=== PATIENT | female | born 1980 | race Caucasian/White ===

== ENCOUNTER 2017-01-01 16:44 | Inpatient (IN) | payer MEDICAID, OTHER ==
[2017-01-01] MEDS ORDERED: Sodium Chloride 0.9% 1,000 ML IV ONE (19:01)
[2017-01-01] MEDS ORDERED: Sodium Chloride 0.9% 1,000 ML ONE (19:29)
[2017-01-01 19:32] LABS: BASO % 0.3 % (0.0-2.0); EOS # 0.1 K/uL (0.0-0.7); EOS % 0.5 % (0.0-4.0); HEMATOCRIT 38.5 % (34.0-47.0); LYMPH # 2.1 K/uL (1.0-4.3); LYMPH % 18.6 % (20.0-40.0); MEAN CELL VOLUME 79.3 fL (81.0-99.0); MEAN CORPUSCULAR HEMOGLOBIN 25.8 pg (27.0-31.0); MEAN CORPUSCULAR HGB CONC 32.5 g/dL (33.0-37.0); MEAN PLATELET VOLUME 7.8 fL (7.2-11.7); MONO # 0.5 K/uL (0.0-0.8); MONO % 4.1 % (0.0-10.0); RED CELL DISTRIBUTION WIDTH 13.5 % (11.5-14.5); WHITE BLOOD COUNT 11.5 K/uL (4.8-10.8)
[2017-01-01 19:37] LABS: RBC URINE 3 /hpf (0-3); URINE BACTERIA RARE (<OCC); URINE BILIRUBIN NEGATIVE (NEGATIVE); URINE BLOOD NEGATIVE (NEGATIVE); URINE COLOR Yellow (YELLOW); URINE GLUCOSE (UA) NORMAL (Normal); URINE KETONE NEGATIVE (NEGATIVE); URINE LEUKOCYTE ESTERASE 1+ Leu/uL (Negative); URINE PROTEIN NEGATIVE (NEGATIVE); URINE UROBILINOGEN NORMAL mg/dL (0.2-1.0); WBC URINE 42 /hpf (0-5)
[2017-01-01 19:40] LABS: CHLORIDE 99 mmol/L (98-107)
[2017-01-01 19:41] LABS: POTASSIUM 4.1 mmol/L (3.6-5.2); SODIUM 139 mmol/L (132-148)
[2017-01-01 19:43] LABS: ALB/GLOB RATIO 1.2 (1.0-2.1); ALKALINE PHOSPHATASE 81 U/L (38-126); AST/SGOT 70 U/L (14-36); BILIRUBIN,TOTAL 0.5 mg/dL (0.2-1.3); BLOOD UREA NITROGEN 11 mg/dL (7-17); CARBON DIOXIDE 24 mmol/L (22-30); GFR AFRICAN-AMERICAN > 60; TOTAL PROTEIN 7.7 g/dL (6.3-8.3)
[2017-01-01 19:44] LABS: ALT/SGPT 220 U/L (9-52); CALCIUM 8.9 mg/dl (8.6-10.4); GLUCOSE,RANDOM 102 mg/dL (65-105)
--- NOTE | 2017-01-01 20:16 | C.PDOC ---
History Of Present Illness 36 y/o female presents to ED with complaints of diffuse abdominal cramping pain for 1 week. Patient reports yesterday multiple episodes of non bloody vomiting and diarrhea, felt dizzy after vomiting which prompted visit to ed today. Patient denies fever, sob, chest pain, dysuria, recent travel or any other complaints at this time. Time Seen by Provider: 01/01/17 18:04 Chief Complaint (Nursing): Abdominal Pain History Per: Patient History/Exam Limitations: no limitations Onset/Duration Of Symptoms: Days Current Symptoms Are (Timing): Still Present Severity: Moderate Location Of Pain/Discomfort: Diffuse Radiation Of Pain To:: None Quality Of Discomfort: Cramping Past Medical History Reviewed: Historical Data, Nursing Documentation, Vital Signs Vital Signs: Last Vital Signs Temp 98.2 F 01/05/17 08:00 Pulse 76 01/05/17 08:00 Resp 20 01/05/17 08:00 BP 117/78 01/05/17 08:00 Pulse Ox 98 01/05/17 08:00 Surgical History: No Surg Hx Family History: States: No Known Family Hx - Social History Hx Alcohol Use: No Hx Substance Use: No - Immunization History Hx Tetanus Toxoid Vaccination: No Hx Influenza Vaccination: No Hx Pneumococcal Vaccination: No Review Of Systems Except As Marked, All Systems Reviewed And Found Negative. Gastrointestinal: Positive for: Vomiting, Abdominal Pain, Diarrhea Neurological: Positive for: Dizziness Physical Exam - Physical Exam Appears: Non-toxic, No Acute Distress Skin: Normal Color, Warm, Dry, No Rash Head: Atraumatic, Normacephalic Eye(s): bilateral: Normal Inspection Oral Mucosa: Moist Neck: Normal ROM, Supple Chest: Symmetrical Cardiovascular: Rhythm Regular, No Murmur Respiratory: Normal Breath Sounds, No Rales, No Rhonchi, No Wheezing Gastrointestinal/Abdominal: Soft, No Tenderness, No Guarding, No Rebound Back: No CVA Tenderness Extremity: Normal ROM, Capillary Refill (<2 seconds) Neurological/Psych: Oriented x3 ED Course And Treatment - Laboratory Results Result Diagrams: 01/05/17 07:55 01/05/17 07:55 O2 Sat by Pulse Oximetry: 100 (RA) Pulse Ox Interpretation: Normal Medical Decision Making Medical Decision Making: The Abd ultrasound shows gallstones with a dilated common bile duct. The case was discussed with Dr. Bain who agrees with plan for OBS for possible MRCP. The case was discussed Dr. Mathew who agrees to admit the patient. 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 - Scribe Statement The provider has reviewed the documentation as recorded by the Chapoibalbino Navarro All medical record entries made by the Marty were at my direction and personally dictated by me. I have reviewed the chart and agree that the record accurately reflects my personal performance of the history, physical exam, medical decision making, and the department course for this patient. I have also personally directed, reviewed, and agree with the discharge instructions and disposition.
--- NOTE | 2017-01-01 20:54 | US ---
EXAM: US Abdomen Limited, Right Upper Quadrant EXAM DATE/TIME: Exam ordered 01/01/2017 7:01 PM CLINICAL HISTORY: 36 years old, female; Pain; Abdominal pain; Epigastric; Additional info: Ruq abd pain TECHNIQUE: Real-time ultrasound of the right upper quadrant with image documentation. COMPARISON: No relevant prior studies available. FINDINGS: Liver: The liver measures 17.1 cm in craniocaudal span. The echotexture of the liver is mildly increased. There is normal blood flow direction in the main portal vein. Phasic flow is noted within the left hepatic vein. Gallbladder: Gallstones are seen in the gallbladder. The gallbladder fundus is not well-seen due to bowel gas. Common bile duct: The common bile duct measures 8 mm. No stones. No dilation. Pancreas: Unremarkable as visualized. Right kidney: The right kidney measures 10.7 x 4.3 x 3.9 cm. No stones. No hydronephrosis. Aorta: The distal abdominal aorta is not seen due to bowel gas. IMPRESSION: 1. Gallstones 2. Common bile duct is mildly dilated at 8 mm. No intrahepatic ductal dilatation is seen. Possibility of distal biliary stricture, stone or neoplasm are among the diagnostic considerations. 3. Mild hepatomegaly. The echotexture the liver is mildly increased. These findings could indicate hepatic steatosis..
[2017-01-02 01:50] LABS: INR 1.1
--- NOTE | 2017-01-02 07:52 | CP.PCM.PN ---
<Yann Miranda - Last Filed: 01/02/17 17:21> Subjective - Date & Time of Evaluation Date of Evaluation: 01/02/17 Time of Evaluation: 07:51 - Subjective Subjective: PGY1 Medicine Note for Dr. Vi Goodman Patient seen and examined at bedside this morning. Patient states that she has not had any abdominal pain since she arrived to the hospital. She is feeling well at the moment. She is currently NPO and is scheduled for an MRCP with Dr. Bo later this morning. Denies f/c, n/v, d/c, sob, cp, headache, numbness or tingling. Objective - Vital Signs/Intake and Output Vital Signs (last 24 hours): Temp Pulse Resp BP Pulse Ox 98.8 F 79 20 121/73 99 01/02/17 07:30 01/02/17 07:30 01/02/17 07:30 01/02/17 07:30 01/02/17 07:30 - Medications Medications: Current Medications Famotidine (Pepcid) 20 mg PO DAILY ANA Heparin Sodium (Porcine) (Heparin) 5,000 units SC Q12 ANA Influenza Virus Vaccine (Afluria) 45 mcg IM .ONCE ONE Stop: 01/04/17 10:01 Ondansetron HCl (Zofran Inj) 4 mg IVP DAILY@ONCE PRN PRN Reason: Nausea/Vomiting Pneumococcal Polyvalent Vaccine (Pneumovax 23 Vaccine) 0.5 ml IM .ONCE ONE Stop: 01/04/17 10:01 - Labs Labs: 01/01/17 19:27 01/01/17 19:27 PT 11.9 SECONDS (9.7-12.2) 01/02/17 01:25 INR 1.1 01/02/17 01:25 APTT 39 SECONDS (21-34) H 01/02/17 01:25 - Constitutional Appears: Non-toxic, No Acute Distress - Head Exam Head Exam: ATRAUMATIC, NORMOCEPHALIC - Eye Exam Eye Exam: EOMI, Normal appearance - ENT Exam ENT Exam: Mucous Membranes Moist - Respiratory Exam Respiratory Exam: Clear to Ausculation Bilateral, NORMAL BREATHING PATTERN. absent: Accessory Muscle Use, Rales, Rhonchi, Wheezes, Respiratory Distress - Cardiovascular Exam Cardiovascular Exam: REGULAR RHYTHM, +S1, +S2 - GI/Abdominal Exam GI & Abdominal Exam: Guarding (RUQ), Soft, Tenderness (mild tenderness in the RUQ), Normal Bowel Sounds. absent: Distended, Firm, Rigid - Neurological Exam Neurological Exam: Alert, Awake, Oriented x3 - Psychiatric Exam Psychiatric exam: Normal Affect, Normal Mood - Skin Skin Exam: Dry, Intact, Normal Color, Warm Assessment and Plan - Assessment and Plan (Free Text) Assessment: (1) Cholelithiases Abd U/S: gallstones, CBD mildly dilated at 8mm, mild hepatomegaly GI consulted, Dr Bo GI consulted, Dr. Quinones - ERCP MRCP abdomen w and w/o contrast - shows 3mm stone in distal CBD. Scheduled for EGD/EUS/ERCP tomorrow with Dr. Quinones NPO - at midnight zofran 4mg ivp q6h prn for n/v (2) Prophylactic measure DVT: heparin 5000u sc q12 held - - pt placed on SCDs for DVT ppx at this time GI: famotidine 20mg po daily Diet: NPO past midnight Case discussed with Dr. Vi Miranda PGY1 <Jacob Goodman - Last Filed: 01/02/17 19:32> Objective - Vital Signs/Intake and Output Vital Signs (last 24 hours): Temp Pulse Resp BP Pulse Ox 98.5 F 64 20 121/80 98 01/02/17 15:00 01/02/17 15:00 01/02/17 15:00 01/02/17 15:00 01/02/17 15:00 - Medications Medications: Current Medications Famotidine (Pepcid) 20 mg PO DAILY [facility] Last Admin: 01/02/17 10:29 Dose: Not Given Heparin Sodium (Porcine) (Heparin) 5,000 units SC Q12 ANA Last Admin: 01/02/17 10:33 Dose: 5,000 units Influenza Virus Vaccine (Afluria) 45 mcg IM .ONCE ONE Stop: 01/04/17 10:01 Ondansetron HCl (Zofran Inj) 4 mg IVP Q6H PRN PRN Reason: Nausea/Vomiting Pneumococcal Polyvalent Vaccine (Pneumovax 23 Vaccine) 0.5 ml IM .ONCE ONE Stop: 01/04/17 10:01 - Labs Labs: 01/02/17 11:28 01/02/17 11:28 PT 11.9 SECONDS (9.7-12.2) 01/02/17 01:25 INR 1.1 01/02/17 01:25 APTT 39 SECONDS (21-34) H 01/02/17 01:25 Attending/Attestation - Attestation I have personally seen and examined this patient.: Yes I have fully participated in the care of the patient.: Yes I have reviewed all pertinent clinical information, including history, physical exam and plan: Yes Notes (Text): 01/02/17 19:30 Patient was seen and examined at 11:45 AM 01/02/17. Exam, Assessment and Plan were thoroughly gone over with the resident. Jacob Goodman D.O.
--- NOTE | 2017-01-02 09:18 | CP.PCM.HP ---
<Allen Haynes - Last Filed: 01/02/17 09:11> History of Present Illness - History of Present Illness History of Present Illness: 36 yo F with no PMHx presented to the ED with intermittent epigastric abdominal pain that began 2 weeks ago. She says the pain radiates from the epigastrum to different quadrants of the abdomen. She describes the pain as sharp and stabbing and rates it a 10/10. She says zantac relieves her symptoms but only for an hour. No exacerbating factors. Associated symptoms include non-bloody emesis on several occasions, fever, chills, headache, dizziness, nausea, non- bloody diarrhea. She went to work today, had an episode of emesis, along with her abdominal pain and decided to come to the ED. 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 absent: Fatigue, Weight Loss - EENT Eyes: absent: Change in Vision Ears: absent: Ear Pain Nose/Mouth/Throat: absent: Nasal Congestion - Cardiovascular Cardiovascular: absent: Chest Pain, Diaphoresis, Palpitations - Respiratory Respiratory: absent: Cough, Dyspnea, Hemoptysis - Gastrointestinal Gastrointestinal: Abdominal Pain, Diarrhea. absent: Bloating, Constipation - Genitourinary Genitourinary: absent: Dysuria - Musculoskeletal Musculoskeletal: absent: Back Pain - Integumentary Integumentary: absent: Lesions - Neurological Neurological: Dizziness. absent: Confusion, Convulsions Past Patient History - Past Medical History & Family History Past Medical History?: Yes - Past Social History Smoking Status: Never Smoked - CARDIAC Hx Cardiac Disorders: No - PULMONARY Hx Respiratory Disorders: No - NEUROLOGICAL Hx Neurological Disorder: No - HEENT Hx HEENT Problems: No - RENAL Hx Chronic Kidney Disease: No - ENDOCRINE/METABOLIC Hx Endocrine Disorders: No - HEMATOLOGICAL/ONCOLOGICAL Hx Blood Disorders: No - INTEGUMENTARY Hx Dermatological Problems: No - MUSCULOSKELETAL/RHEUMATOLOGICAL Hx Falls: No - GASTROINTESTINAL Hx Gastrointestinal Disorders: No - GENITOURINARY/GYNECOLOGICAL Hx Genitourinary Disorders: No - PSYCHIATRIC Hx Substance Use: No - SURGICAL HISTORY Hx Surgeries: No - ANESTHESIA Hx Anesthesia: No Hx Anesthesia Reactions: No Hx Malignant Hyperthermia: No Has any member of the family had a problem w/ anesthesia?: No Meds Allergies/Adverse Reactions: Allergies Allergy/AdvReac Type Severity Reaction Status Date / Time No Known Allergies Allergy Verified 01/01/17 17:02 Physical Exam - Constitutional Appears: Well, Non-toxic, No Acute Distress - Head Exam Head Exam: ATRAUMATIC, NORMAL INSPECTION - Eye Exam Eye Exam: EOMI Pupil Exam: PERRL - ENT Exam ENT Exam: Mucous Membranes Moist - Neck Exam Neck exam: Positive for: Normal Inspection - Respiratory Exam Respiratory Exam: Clear to Auscultation Bilateral, NORMAL BREATHING PATTERN. absent: Rales, Rhonchi, Wheezes - Cardiovascular Exam Cardiovascular Exam: REGULAR RHYTHM, RRR, +S1, +S2. absent: Systolic Murmur - GI/Abdominal Exam GI & Abdominal Exam: Normal Bowel Sounds, Soft, Tenderness. absent: Distended, Guarding, Rebound - Rectal Exam Rectal Exam: Deferred - Extremities Exam Extremities exam: Positive for: normal capillary refill, normal inspection. Negative for: pedal edema - Back Exam Back exam: NORMAL INSPECTION. absent: CVA tenderness (L), CVA tenderness (R) - Neurological Exam Neurological exam: Alert, CN II-XII Intact, Oriented x3 - Psychiatric Exam Psychiatric exam: Normal Affect, Normal Mood - Skin Skin Exam: Dry, Intact, Normal Color, Warm Results - Vital Signs Recent Vital Signs: Last Vital Signs Temp 98.8 F 01/02/17 07:30 Pulse 79 01/02/17 07:30 Resp 20 01/02/17 07:30 BP 121/73 01/02/17 07:30 Pulse Ox 99 01/02/17 07:30 - Labs Result Diagrams: 01/01/17 19:27 01/01/17 19:27 Labs: Laboratory Results - last 24 hr 01/01/17 01/01/17 01/01/17 19:27 19:27 19:27 WBC 11.5 H RBC 4.85 Hgb 12.5 Hct 38.5 MCV 79.3 L MCH 25.8 L MCHC 32.5 L RDW 13.5 Plt Count 337 MPV 7.8 Neut % (Auto) 76.5 H Lymph % (Auto) 18.6 L [place] % (Auto) 4.1 Eos % (Auto) 0.5 Baso % (Auto) 0.3 Neut # 8.8 H Lymph # 2.1 [place] # 0.5 Eos # 0.1 Baso # 0.0 PT INR APTT Sodium 139 Potassium 4.1 Chloride 99 Carbon Dioxide 24 Anion Gap 21 H BUN 11 Creatinine 0.7 Est GFR ( Amer) > 60 Est GFR (Non-Af Amer) > 60 Random Glucose 102 Calcium 8.9 Total Bilirubin 0.5 AST 70 H ALT 220 H Alkaline Phosphatase 81 Total Protein 7.7 Albumin 4.3 Globulin 3.5 Albumin/Globulin Ratio 1.2 Lipase 92 Urine Color Yellow Urine Clarity Clear Urine pH 5.0 Ur Specific [place] 1.028 Urine Protein Negative Urine Glucose (UA) Normal Urine Ketones Negative Urine Blood Negative Urine Nitrate Negative Urine Bilirubin Negative Urine Urobilinogen Normal Ur Leukocyte Esterase 1+ H Urine WBC (Auto) 42 H Urine RBC (Auto) 3 Ur Squamous Epith Cells 15 H Urine Bacteria Rare Urine HCG, Qual Negative 01/02/17 01:25 WBC RBC Hgb Hct MCV MCH MCHC RDW Plt Count MPV Neut % (Auto) Lymph % (Auto) [place] % (Auto) Eos % (Auto) Baso % (Auto) Neut # Lymph # [place] # Eos # Baso # PT 11.9 INR 1.1 APTT 39 H Sodium Potassium Chloride Carbon Dioxide Anion Gap BUN Creatinine Est GFR ( Amer) Est GFR (Non-Af Amer) Random Glucose Calcium Total Bilirubin AST ALT Alkaline Phosphatase Total Protein Albumin Globulin Albumin/Globulin Ratio Lipase Urine Color Urine Clarity Urine pH Ur Specific [place] Urine Protein Urine Glucose (UA) Urine Ketones Urine Blood Urine Nitrate Urine Bilirubin Urine Urobilinogen Ur Leukocyte Esterase Urine WBC (Auto) Urine RBC (Auto) Ur Squamous Epith Cells Urine Bacteria Urine HCG, Qual Assessment & Plan (1) Cholelithiases Assessment and Plan: clinical symptoms consistent with cholelithiases Abd U/S: gallstones, CBD mildly dilated at 8mm, mild hepatomegaly GI consulted, Dr Bo MRI MRCP abdomen w and w/o contrast NPO for now zofran 4mg ivp q6h prn for n/v Status: Acute (2) Prophylactic measure Assessment and Plan: DVT: heparin 5000u sc q12 GI: famotidine 20mg po daily Diet: NPO for now Status: Acute <Kj Mathew - Last Filed: 01/02/17 19:07> Results - Vital Signs Recent Vital Signs: Last Vital Signs Temp 98.5 F 01/02/17 15:00 Pulse 64 01/02/17 15:00 Resp 20 01/02/17 15:00 BP 121/80 01/02/17 15:00 Pulse Ox 98 01/02/17 15:00 - Labs Result Diagrams: 01/02/17 11:28 01/02/17 11:28 Labs: Laboratory Results - last 24 hr 01/01/17 01/01/17 01/01/17 19:27 19:27 19:27 WBC 11.5 H RBC 4.85 Hgb 12.5 Hct 38.5 MCV 79.3 L MCH 25.8 L MCHC 32.5 L RDW 13.5 Plt Count 337 MPV 7.8 Neut % (Auto) 76.5 H Lymph % (Auto) 18.6 L [place] % (Auto) 4.1 Eos % (Auto) 0.5 Baso % (Auto) 0.3 Neut # 8.8 H Lymph # 2.1 [place] # 0.5 Eos # 0.1 Baso # 0.0 PT INR APTT Sodium 139 Potassium 4.1 Chloride 99 Carbon Dioxide 24 Anion Gap 21 H BUN 11 Creatinine 0.7 Est GFR ( Amer) > 60 Est GFR (Non-Af Amer) > 60 Random Glucose 102 Calcium 8.9 Total Bilirubin 0.5 AST 70 H ALT 220 H Alkaline Phosphatase 81 Total Protein 7.7 Albumin 4.3 Globulin 3.5 Albumin/Globulin Ratio 1.2 Lipase 92 Urine Color Yellow Urine Clarity Clear Urine pH 5.0 Ur Specific [place] 1.028 Urine Protein Negative Urine Glucose (UA) Normal Urine Ketones Negative Urine Blood Negative Urine Nitrate Negative Urine Bilirubin Negative Urine Urobilinogen Normal Ur Leukocyte Esterase 1+ H Urine WBC (Auto) 42 H Urine RBC (Auto) 3 Ur Squamous Epith Cells 15 H Urine Bacteria Rare Urine HCG, Qual Negative 01/02/17 01/02/17 01/02/17 01:25 11:28 11:28 WBC 7.7 RBC 4.65 Hgb 12.5 Hct 37.3 MCV 80.2 L MCH 26.8 L MCHC 33.4 RDW 13.4 Plt Count 338 MPV 8.0 Neut % (Auto) 60.5 Lymph % (Auto) 30.7 [place] % (Auto) 7.2 Eos % (Auto) 1.2 Baso % (Auto) 0.4 Neut # 4.7 Lymph # 2.4 [place] # 0.6 Eos # 0.1 Baso # 0.0 PT 11.9 INR 1.1 APTT 39 H Sodium 139 Potassium 3.8 Chloride 98 Carbon Dioxide 26 Anion Gap 19 BUN 10 Creatinine 0.8 Est GFR ( Amer) > 60 Est GFR (Non-Af Amer) > 60 Random Glucose 102 Calcium 9.0 Total Bilirubin 0.8 AST 44 H D ALT 172 H D Alkaline Phosphatase 74 Total Protein 7.5 Albumin 4.2 Globulin 3.4 Albumin/Globulin Ratio 1.2 Lipase Urine Color Urine Clarity Urine pH Ur Specific [place] Urine Protein Urine Glucose (UA) Urine Ketones Urine Blood Urine Nitrate Urine Bilirubin Urine Urobilinogen Ur Leukocyte Esterase Urine WBC (Auto) Urine RBC (Auto) Ur Squamous Epith Cells Urine Bacteria Urine HCG, Qual Assessment & Plan - Date & Time Date: 01/02/17 (I have seen and examined the patient. I agree with the findings and plan of care as documented by Dr. Haynes. Patient with choledocolithiasis. Consult to GI. Symptomatic treatment for now. Likely MRCP needed. Monitor for acute changes.) Time: 19:06 Attending/Attestation - Attestation I have personally seen and examined this patient.: Yes I have fully participated in the care of the patient.: Yes I have reviewed all pertinent clinical information: Yes
[2017-01-02 11:43] LABS: BASO % 0.4 % (0.0-2.0); EOS # 0.1 K/uL (0.0-0.7); EOS % 1.2 % (0.0-4.0); HEMATOCRIT 37.3 % (34.0-47.0); LYMPH # 2.4 K/uL (1.0-4.3); LYMPH % 30.7 % (20.0-40.0); MEAN CELL VOLUME 80.2 fL (81.0-99.0); MEAN CORPUSCULAR HEMOGLOBIN 26.8 pg (27.0-31.0); MEAN CORPUSCULAR HGB CONC 33.4 g/dL (33.0-37.0); MONO # 0.6 K/uL (0.0-0.8); MONO % 7.2 % (0.0-10.0); NRBC % 0.1 % (0.0-2.0); RED CELL DISTRIBUTION WIDTH 13.4 % (11.5-14.5); WHITE BLOOD COUNT 7.7 K/uL (4.8-10.8)
[2017-01-02 12:08] LABS: CHLORIDE 98 mmol/L (98-107); POTASSIUM 3.8 mmol/L (3.6-5.2); SODIUM 139 mmol/L (132-148)
--- NOTE | 2017-01-02 12:08 | MRI ---
MRI abdomen without/with IV contrast MRCP Indication: Gallstones, CBD dilated 8 mm Technique: Multiplanar, multi sequence magnetic resonance images of the abdomen were obtained without and with the administration of intravenous gadolinium using a multi phase abdomen protocol. Rotating maximum intensity projection images of the biliary system were generated. A total of [id number] images submitted for review Comparison: Limited abdominal ultrasound performed 01/01/17 Findings: The liver appears unremarkable. No focal liver lesions are seen. Cholelithiasis. There is no intrahepatic biliary ductal dilatation. The common bile duct appears within normal limits in caliber (approximately 6 mm) ; distal most CBD is not well visualized. 3 mm filling defect within the distal CBD consistent with calculus (series 10, image 12). The pancreatic duct does not appear dilated. The spleen, pancreas, and adrenal glands appear unremarkable. The kidneys enhance symmetrically. No evidence of hydronephrosis or obstructing calculus. No bulky adenopathy identified. Limited views of the inferior thorax appear unremarkable. Impression: Cholelithiasis. The common bile duct appears top normal in caliber measuring approximately 6 mm ; distal-most CBD is not well visualized. A single 3 mm filling defect is identified on 1 sequence and appears consistent with a calculus. Correlate clinically.
[2017-01-02 12:10] LABS: BILIRUBIN,TOTAL 0.8 mg/dL (0.2-1.3); CARBON DIOXIDE 26 mmol/L (22-30); GFR AFRICAN-AMERICAN > 60
[2017-01-02 12:11] LABS: ALB/GLOB RATIO 1.2 (1.0-2.1); ALKALINE PHOSPHATASE 74 U/L (38-126); ALT/SGPT 172 U/L (9-52); AST/SGOT 44 U/L (14-36); BLOOD UREA NITROGEN 10 mg/dL (7-17); GLUCOSE,RANDOM 102 mg/dL (65-105); TOTAL PROTEIN 7.5 g/dL (6.3-8.3)
--- NOTE | 2017-01-02 13:50 | CP.PCM.CON ---
History of Present Illness - History of Present Illness History of Present Illness: This is a 36 year old woman with abdominal pain. Patient states that she noted sudden onset of epigastric pain two weeks ago. The pain was described as sharp, intermittent, lasting up to three hours, accompanied by nausea and vomiting. It was not clearly related to meals. She denies having fever. She had diarrhea three times on the day she came to the ER. She denies having rectal bleeding or constipation. In the ER, elevated LFTs were noted: AST 70, ALT 220. Sonogram showed gallstones and CBD 8 mm. MRCP shows 3 mm distal CBD stone and the CBD measured 6 mm. Review of Systems - Constitutional Constitutional: Chills, Headache. absent: Weight Loss - Cardiovascular Cardiovascular: absent: Chest Pain, Palpitations - Respiratory Respiratory: absent: Cough, Dyspnea, Hemoptysis - Gastrointestinal Gastrointestinal: Abdominal Pain, Diarrhea. absent: Constipation, Hematochezia - Genitourinary Genitourinary: absent: Dysuria Past Patient History - Past Medical History & Family History Past Medical History?: Yes - Past Social History Smoking Status: Never Smoked - CARDIAC Hx Cardiac Disorders: No - PULMONARY Hx Respiratory Disorders: No - NEUROLOGICAL Hx Neurological Disorder: No - HEENT Hx HEENT Problems: No - RENAL Hx Chronic Kidney Disease: No - ENDOCRINE/METABOLIC Hx Endocrine Disorders: No - HEMATOLOGICAL/ONCOLOGICAL Hx Blood Disorders: No - INTEGUMENTARY Hx Dermatological Problems: No - MUSCULOSKELETAL/RHEUMATOLOGICAL Hx Falls: No - GASTROINTESTINAL Hx Gastrointestinal Disorders: No - GENITOURINARY/GYNECOLOGICAL Hx Genitourinary Disorders: No - PSYCHIATRIC Hx Substance Use: No - SURGICAL HISTORY Hx Surgeries: No - ANESTHESIA Hx Anesthesia: No Hx Anesthesia Reactions: No Hx Malignant Hyperthermia: No Has any member of the family had a problem w/ anesthesia?: No Meds Allergies/Adverse Reactions: Allergies Allergy/AdvReac Type Severity Reaction Status Date / Time No Known Allergies Allergy Verified 01/01/17 17:02 - Medications Medications: Current Medications Famotidine (Pepcid) 20 mg PO DAILY [facility] Last Admin: 01/02/17 10:29 Dose: Not Given Heparin Sodium (Porcine) (Heparin) 5,000 units SC Q12 [facility] Last Admin: 01/02/17 10:33 Dose: 5,000 units Influenza Virus Vaccine (Afluria) 45 mcg IM .ONCE ONE Stop: 01/04/17 10:01 Ondansetron HCl (Zofran Inj) 4 mg IVP Q6H PRN PRN Reason: Nausea/Vomiting Pneumococcal Polyvalent Vaccine (Pneumovax 23 Vaccine) 0.5 ml IM .ONCE ONE Stop: 01/04/17 10:01 Physical Exam - Constitutional Appears: No Acute Distress - Head Exam Head Exam: ATRAUMATIC, NORMOCEPHALIC - Eye Exam Eye Exam: EOMI, PERRL - Neck Exam Neck exam: Negative for: Lymphadenopathy, Thyromegaly - Respiratory Exam Respiratory Exam: NORMAL BREATHING PATTERN. absent: Rales, Rhonchi, Wheezes - Cardiovascular Exam Cardiovascular Exam: REGULAR RHYTHM, +S1, +S2. absent: Gallop, Rubs, Systolic Murmur - GI/Abdominal Exam GI & Abdominal Exam: Normal Bowel Sounds, Soft. absent: Mass, Organomegaly, Tenderness - Rectal Exam Rectal Exam: Deferred - Extremities Exam Extremities exam: Negative for: calf tenderness, pedal edema Results - Vital Signs Recent Vital Signs: Last Vital Signs Temp 98.8 F 01/02/17 07:30 Pulse 79 01/02/17 07:30 Resp 20 01/02/17 07:30 BP 121/73 01/02/17 07:30 Pulse Ox 99 01/02/17 07:30 - Labs Result Diagrams: 01/02/17 11:28 01/02/17 11:28 Labs: Laboratory Results - last 24 hr 01/01/17 01/01/17 01/01/17 19:27 19:27 19:27 WBC 11.5 H RBC 4.85 Hgb 12.5 Hct 38.5 MCV 79.3 L MCH 25.8 L MCHC 32.5 L RDW 13.5 Plt Count 337 MPV 7.8 Neut % (Auto) 76.5 H Lymph % (Auto) 18.6 L [place] % (Auto) 4.1 Eos % (Auto) 0.5 Baso % (Auto) 0.3 Neut # 8.8 H Lymph # 2.1 Rogers # 0.5 Eos # 0.1 Baso # 0.0 PT INR APTT Sodium 139 Potassium 4.1 Chloride 99 Carbon Dioxide 24 Anion Gap 21 H BUN 11 Creatinine 0.7 Est GFR ( Amer) > 60 Est GFR (Non-Af Amer) > 60 Random Glucose 102 Calcium 8.9 Total Bilirubin 0.5 AST 70 H ALT 220 H Alkaline Phosphatase 81 Total Protein 7.7 Albumin 4.3 Globulin 3.5 Albumin/Globulin Ratio 1.2 Lipase 92 Urine Color Yellow Urine Clarity Clear Urine pH 5.0 Ur Specific [place] 1.028 Urine Protein Negative Urine Glucose (UA) Normal Urine Ketones Negative Urine Blood Negative Urine Nitrate Negative Urine Bilirubin Negative Urine Urobilinogen Normal Ur Leukocyte Esterase 1+ H Urine WBC (Auto) 42 H Urine RBC (Auto) 3 Ur Squamous Epith Cells 15 H Urine Bacteria Rare Urine HCG, Qual Negative 01/02/17 01/02/17 01/02/17 01:25 11:28 11:28 WBC 7.7 RBC 4.65 Hgb 12.5 Hct 37.3 MCV 80.2 L MCH 26.8 L MCHC 33.4 RDW 13.4 Plt Count 338 MPV 8.0 Neut % (Auto) 60.5 Lymph % (Auto) 30.7 Rogers % (Auto) 7.2 Eos % (Auto) 1.2 Baso % (Auto) 0.4 Neut # 4.7 Lymph # 2.4 Rogers # 0.6 Eos # 0.1 Baso # 0.0 PT 11.9 INR 1.1 APTT 39 H Sodium 139 Potassium 3.8 Chloride 98 Carbon Dioxide 26 Anion Gap 19 BUN 10 Creatinine 0.8 Est GFR ( Amer) > 60 Est GFR (Non-Af Amer) > 60 Random Glucose 102 Calcium 9.0 Total Bilirubin 0.8 AST 44 H D ALT 172 H D Alkaline Phosphatase 74 Total Protein 7.5 Albumin 4.2 Globulin 3.4 Albumin/Globulin Ratio 1.2 Lipase Urine Color Urine Clarity Urine pH Ur Specific [place] Urine Protein Urine Glucose (UA) Urine Ketones Urine Blood Urine Nitrate Urine Bilirubin Urine Urobilinogen Ur Leukocyte Esterase Urine WBC (Auto) Urine RBC (Auto) Ur Squamous Epith Cells Urine Bacteria Urine HCG, Qual Assessment & Plan (1) Epigastric abdominal pain Assessment and Plan: Patient presents with a two week history of epigastric pain, elevated transaminases, mildly dilated CBD and distal CBD stone on MRCP. Patient should have ERCP to clear the bile duct and cholecystectomy on this admission. Status: Acute
--- NOTE | 2017-01-02 14:25 | CP.PCM.CON ---
<Jose Mancia - Last Filed: 01/02/17 18:01> History of Present Illness - History of Present Illness History of Present Illness: PGY5 GI Fellow Consult Note Patient is a 36yo female with no significant past medical history who presented to the ED with abdominal pain. She suddenly developed intermittent epigastric abdominal pain two weeks ago while getting her children ready for school. Pain has continued to come and go without any obvious preceding causes and has not been related to meals. In the interim, she has used Zantac as needed with modest , short-lived relief. Occasionally she has developed pain followed by nausea and vomiting. Yesterday, she became nauseated and vomited twice, became dizzy and lightheaded and felt she might faint which prompted her to come to the ED for further evaluation. She denies any fever, chills, weight loss, OTC medication/NSAID use, melena, hematochezia. Denies ever having had symptoms like this prior to two weeks ago. PMHx: Discussed with patient and she denies any prior medical history PSHx: Discussed with patient and she denies any prior surgical history FHx: Discussed with patient and she denies any pertinent family history Social: Denies tobacco, EtOH or illicit drug use Endo: No prior endoscopic evaluations Review of Systems - Constitutional Constitutional: Anorexia. absent: Chills, Fever, Weight Loss - EENT Eyes: absent: Change in Vision Nose/Mouth/Throat: absent: Sore Throat - Cardiovascular Cardiovascular: absent: Chest Pain, Dyspnea, Dyspnea on Exertion - Respiratory Respiratory: absent: Cough, Dyspnea, Excessive Mucous Production - Gastrointestinal Gastrointestinal: Abdominal Pain, Cramping, Nausea, Vomiting. absent: Belching , Bloating, Constipation, Diarrhea, Dyspepsia, Dysphagia, Hematemesis, Hematochezia, Loose Stools, Odynophagia - Genitourinary Genitourinary: absent: Dysuria, Urinary Frequency, Urinary Urgency - Musculoskeletal Musculoskeletal: absent: Back Pain, Neck Pain - Integumentary Integumentary: absent: New Lesions, Rash - Neurological Neurological: absent: Dizziness, Numbness, Focal Weakness - Psychiatric Psychiatric: absent: Anxiety, Depression - Endocrine Endocrine: absent: Polydipsia, Polyphagia, Polyuria - Hematologic/Lymphatic Hematologic: absent: Easy Bleeding, Easy Bruising, Lymphadenopathy Past Patient History - Past Medical History & Family History Past Medical History?: Yes - Past Social History Smoking Status: Never Smoked - CARDIAC Hx Cardiac Disorders: No - PULMONARY Hx Respiratory Disorders: No - NEUROLOGICAL Hx Neurological Disorder: No - HEENT Hx HEENT Problems: No - RENAL Hx Chronic Kidney Disease: No - ENDOCRINE/METABOLIC Hx Endocrine Disorders: No - HEMATOLOGICAL/ONCOLOGICAL Hx Blood Disorders: No - INTEGUMENTARY Hx Dermatological Problems: No - MUSCULOSKELETAL/RHEUMATOLOGICAL Hx Falls: No - GASTROINTESTINAL Hx Gastrointestinal Disorders: No - GENITOURINARY/GYNECOLOGICAL Hx Genitourinary Disorders: No - PSYCHIATRIC Hx Substance Use: No - SURGICAL HISTORY Hx Surgeries: No - ANESTHESIA Hx Anesthesia: No Hx Anesthesia Reactions: No Hx Malignant Hyperthermia: No Has any member of the family had a problem w/ anesthesia?: No Meds Allergies/Adverse Reactions: Allergies Allergy/AdvReac Type Severity Reaction Status Date / Time No Known Allergies Allergy Verified 01/01/17 17:02 - Medications Medications: Current Medications Famotidine (Pepcid) 20 mg PO DAILY [facility] Last Admin: 01/02/17 10:29 Dose: Not Given Heparin Sodium (Porcine) (Heparin) 5,000 units SC Q12 [facility] Last Admin: 01/02/17 10:33 Dose: 5,000 units Influenza Virus Vaccine (Afluria) 45 mcg IM .ONCE ONE Stop: 01/04/17 10:01 Ondansetron HCl (Zofran Inj) 4 mg IVP Q6H PRN PRN Reason: Nausea/Vomiting Pneumococcal Polyvalent Vaccine (Pneumovax 23 Vaccine) 0.5 ml IM .ONCE ONE Stop: 01/04/17 10:01 Physical Exam - Constitutional Appears: Non-toxic, No Acute Distress - Eye Exam Eye Exam: EOMI, PERRL - ENT Exam ENT Exam: Mucous Membranes Moist - Respiratory Exam Respiratory Exam: Clear to Auscultation Bilateral. absent: Rales, Rhonchi, Wheezes - Cardiovascular Exam Cardiovascular Exam: RRR, +S1, +S2 - GI/Abdominal Exam GI & Abdominal Exam: Normal Bowel Sounds, Soft. absent: Distended, Firm, Guarding, Organomegaly, Rigid, Tenderness - Extremities Exam Extremities exam: Positive for: normal inspection. Negative for: pedal edema - Neurological Exam Neurological exam: Alert, Oriented x3 - Psychiatric Exam Psychiatric exam: Normal Affect, Normal Mood - Skin Skin Exam: Dry, Warm Results - Vital Signs Recent Vital Signs: Last Vital Signs Temp 98.8 F 01/02/17 07:30 Pulse 79 01/02/17 07:30 Resp 20 01/02/17 07:30 BP 121/73 01/02/17 07:30 Pulse Ox 99 01/02/17 07:30 - Labs Result Diagrams: 01/02/17 11:28 01/02/17 11:28 Labs: Laboratory Results - last 24 hr 01/01/17 01/01/17 01/01/17 19:27 19:27 19:27 WBC 11.5 H RBC 4.85 Hgb 12.5 Hct 38.5 MCV 79.3 L MCH 25.8 L MCHC 32.5 L RDW 13.5 Plt Count 337 MPV 7.8 Neut % (Auto) 76.5 H Lymph % (Auto) 18.6 L [place] % (Auto) 4.1 Eos % (Auto) 0.5 Baso % (Auto) 0.3 Neut # 8.8 H Lymph # 2.1 Ferry # 0.5 Eos # 0.1 Baso # 0.0 PT INR APTT Sodium 139 Potassium 4.1 Chloride 99 Carbon Dioxide 24 Anion Gap 21 H BUN 11 Creatinine 0.7 Est GFR ( Amer) > 60 Est GFR (Non-Af Amer) > 60 Random Glucose 102 Calcium 8.9 Total Bilirubin 0.5 AST 70 H ALT 220 H Alkaline Phosphatase 81 Total Protein 7.7 Albumin 4.3 Globulin 3.5 Albumin/Globulin Ratio 1.2 Lipase 92 Urine Color Yellow Urine Clarity Clear Urine pH 5.0 Ur Specific [place] 1.028 Urine Protein Negative Urine Glucose (UA) Normal Urine Ketones Negative Urine Blood Negative Urine Nitrate Negative Urine Bilirubin Negative Urine Urobilinogen Normal Ur Leukocyte Esterase 1+ H Urine WBC (Auto) 42 H Urine RBC (Auto) 3 Ur Squamous Epith Cells 15 H Urine Bacteria Rare Urine HCG, Qual Negative 01/02/17 01/02/17 01/02/17 01:25 11:28 11:28 WBC 7.7 RBC 4.65 Hgb 12.5 Hct 37.3 MCV 80.2 L MCH 26.8 L MCHC 33.4 RDW 13.4 Plt Count 338 MPV 8.0 Neut % (Auto) 60.5 Lymph % (Auto) 30.7 [place] % (Auto) 7.2 Eos % (Auto) 1.2 Baso % (Auto) 0.4 Neut # 4.7 Lymph # 2.4 [place]erry # 0.6 Eos # 0.1 Baso # 0.0 PT 11.9 INR 1.1 APTT 39 H Sodium 139 Potassium 3.8 Chloride 98 Carbon Dioxide 26 Anion Gap 19 BUN 10 Creatinine 0.8 Est GFR ( Amer) > 60 Est GFR (Non-Af Amer) > 60 Random Glucose 102 Calcium 9.0 Total Bilirubin 0.8 AST 44 H D ALT 172 H D Alkaline Phosphatase 74 Total Protein 7.5 Albumin 4.2 Globulin 3.4 Albumin/Globulin Ratio 1.2 Lipase Urine Color Urine Clarity Urine pH Ur Specific [place] Urine Protein Urine Glucose (UA) Urine Ketones Urine Blood Urine Nitrate Urine Bilirubin Urine Urobilinogen Ur Leukocyte Esterase Urine WBC (Auto) Urine RBC (Auto) Ur Squamous Epith Cells Urine Bacteria Urine HCG, Qual Assessment & Plan - Assessment and Plan (Free Text) Assessment: Patient is a 36yo female with no significant past medical history who presented to the ED with abdominal pain. -Abdominal pain -Abnormal imaging of the CBD on MRCP, concern for choledocolithiasis vs stricture -Cholelithiasis -Transaminasemia Plan: -U/S and MRCP reviewed -Appears to have distal CBD lesion, possible choledocolithiasis -Plan for EGD/EUS/ERCP tomorrow with Dr Quinones -May benefit from surgical consultation for cholecystectomy -Hold prophylactic Heparin, can use SCDs for DVT ppx -NPO past MN -Check ZOE, AMA, SMA, LKM-Ab, IgG level tomorrow AM given transaminasemia - Date & Time Date: 01/02/17 Time: 14:30 <Bear Hayden - Last Filed: 01/02/17 18:17> Meds - Medications Medications: Current Medications Famotidine (Pepcid) 20 mg PO DAILY [facility] Last Admin: 01/02/17 10:29 Dose: Not Given Heparin Sodium (Porcine) (Heparin) 5,000 units SC Q12 [facility] Last Admin: 01/02/17 10:33 Dose: 5,000 units Influenza Virus Vaccine (Afluria) 45 mcg IM .ONCE ONE Stop: 01/04/17 10:01 Ondansetron HCl (Zofran Inj) 4 mg IVP Q6H PRN PRN Reason: Nausea/Vomiting Pneumococcal Polyvalent Vaccine (Pneumovax 23 Vaccine) 0.5 ml IM .ONCE ONE Stop: 01/04/17 10:01 Results - Vital Signs Recent Vital Signs: Last Vital Signs Temp 98.5 F 01/02/17 15:00 Pulse 64 01/02/17 15:00 Resp 20 01/02/17 15:00 BP 121/80 01/02/17 15:00 Pulse Ox 98 01/02/17 15:00 - Labs Result Diagrams: 01/02/17 11:28 01/02/17 11:28 Labs: Laboratory Results - last 24 hr 01/01/17 01/01/17 01/01/17 19:27 19:27 19:27 WBC 11.5 H RBC 4.85 Hgb 12.5 Hct 38.5 MCV 79.3 L MCH 25.8 L MCHC 32.5 L RDW 13.5 Plt Count 337 MPV 7.8 Neut % (Auto) 76.5 H Lymph % (Auto) 18.6 L [place] % (Auto) 4.1 Eos % (Auto) 0.5 Baso % (Auto) 0.3 Neut # 8.8 H Lymph # 2.1 Ferry # 0.5 Eos # 0.1 Baso # 0.0 PT INR APTT Sodium 139 Potassium 4.1 Chloride 99 Carbon Dioxide 24 Anion Gap 21 H BUN 11 Creatinine 0.7 Est GFR ( Amer) > 60 Est GFR (Non-Af Amer) > 60 Random Glucose 102 Calcium 8.9 Total Bilirubin 0.5 AST 70 H ALT 220 H Alkaline Phosphatase 81 Total Protein 7.7 Albumin 4.3 Globulin 3.5 Albumin/Globulin Ratio 1.2 Lipase 92 Urine Color Yellow Urine Clarity Clear Urine pH 5.0 Ur Specific [place] 1.028 Urine Protein Negative Urine Glucose (UA) Normal Urine Ketones Negative Urine Blood Negative Urine Nitrate Negative Urine Bilirubin Negative Urine Urobilinogen Normal Ur Leukocyte Esterase 1+ H Urine WBC (Auto) 42 H Urine RBC (Auto) 3 Ur Squamous Epith Cells 15 H Urine Bacteria Rare Urine HCG, Qual Negative 01/02/17 01/02/17 01/02/17 01:25 11:28 11:28 WBC 7.7 RBC 4.65 Hgb 12.5 Hct 37.3 MCV 80.2 L MCH 26.8 L MCHC 33.4 RDW 13.4 Plt Count 338 MPV 8.0 Neut % (Auto) 60.5 Lymph % (Auto) 30.7 [place] % (Auto) 7.2 Eos % (Auto) 1.2 Baso % (Auto) 0.4 Neut # 4.7 Lymph # 2.4 Ferry # 0.6 Eos # 0.1 Baso # 0.0 PT 11.9 INR 1.1 APTT 39 H Sodium 139 Potassium 3.8 Chloride 98 Carbon Dioxide 26 Anion Gap 19 BUN 10 Creatinine 0.8 Est GFR ( Amer) > 60 Est GFR (Non-Af Amer) > 60 Random Glucose 102 Calcium 9.0 Total Bilirubin 0.8 AST 44 H D ALT 172 H D Alkaline Phosphatase 74 Total Protein 7.5 Albumin 4.2 Globulin 3.4 Albumin/Globulin Ratio 1.2 Lipase Urine Color Urine Clarity Urine pH Ur Specific [place] Urine Protein Urine Glucose (UA) Urine Ketones Urine Blood Urine Nitrate Urine Bilirubin Urine Urobilinogen Ur Leukocyte Esterase Urine WBC (Auto) Urine RBC (Auto) Ur Squamous Epith Cells Urine Bacteria Urine HCG, Qual Attending/Attestation - Attestation I have personally seen and examined this patient.: Yes I have fully participated in the care of the patient.: Yes I have reviewed all pertinent clinical information: Yes Notes (Text): 01/02/17 18:11 I have seen and examined patient with GI fellow. Agree with above documentation with the following additions. In brief, this is a 36 year old female without significant past medical history who presents to hospital with progressive abdominal pain for the past 2 weeks. The pain does not appear to be related to food consumption, located in epigastric region and at times radiates to RUQ. Her symptoms were associated with multiple episodes of nausea , vomiting which prompted her to come to hospital. She currently appears comfortable and has not had recurrent vomiting since arrival to hospital. She denies fever/chills, weight loss, jaundice, or pruritis. No prior endoscopic evaluation or prior history of liver abnormalities. Abdominal pain Transaminitis US and MRCP imaging reviewed by me showing questionable distal CBD filling defect suggestive of choledocholithiasis - Liquid diet as tolerated - Continue to monitor LFTs, obtain autoimmune panel - Given progressive symptoms with radiographic findings suggestive of choledocholithiasis, will plan for EUS +/- ERCP tomorrow with Dr. Quinones - Patient may benefit from future consideration of cholecystectomy - Further recommendations following endoscopic examination tomorrow. Will continue to monitor patient clinical course.
[2017-01-03 08:10] LABS: BASO % 0.5 % (0.0-2.0); EOS # 0.1 K/uL (0.0-0.7); EOS % 1.7 % (0.0-4.0); HEMATOCRIT 37.4 % (34.0-47.0); LYMPH # 2.9 K/uL (1.0-4.3); LYMPH % 39.4 % (20.0-40.0); MEAN CELL VOLUME 80.2 fL (81.0-99.0); MEAN CORPUSCULAR HEMOGLOBIN 27.1 pg (27.0-31.0); MEAN CORPUSCULAR HGB CONC 33.8 g/dL (33.0-37.0); MEAN PLATELET VOLUME 7.9 fL (7.2-11.7); MONO # 0.5 K/uL (0.0-0.8); MONO % 6.5 % (0.0-10.0); RED CELL DISTRIBUTION WIDTH 13.4 % (11.5-14.5); WHITE BLOOD COUNT 7.4 K/uL (4.8-10.8)
[2017-01-03 08:15] LABS: CHLORIDE 99 mmol/L (98-107)
[2017-01-03 08:16] LABS: POTASSIUM 3.9 mmol/L (3.6-5.2); SODIUM 139 mmol/L (132-148)
[2017-01-03 08:18] LABS: AST/SGOT 31 U/L (14-36); BILIRUBIN,TOTAL 0.6 mg/dL (0.2-1.3); CARBON DIOXIDE 25 mmol/L (22-30); GFR AFRICAN-AMERICAN > 60
[2017-01-03 08:19] LABS: ALB/GLOB RATIO 1.2 (1.0-2.1); ALKALINE PHOSPHATASE 72 U/L (38-126); ALT/SGPT 145 U/L (9-52); BLOOD UREA NITROGEN 10 mg/dL (7-17); CALCIUM 9.4 mg/dl (8.6-10.4); GLUCOSE,RANDOM 97 mg/dL (65-105); TOTAL PROTEIN 7.5 g/dL (6.3-8.3)
[2017-01-03] MEDS ORDERED: Iohexol 240 (50 ml) ONE (09:28)
[2017-01-03] MEDS ORDERED: Indomethacin 50 MG Suppository PR ONE ×2 (09:34→11:16)
[2017-01-03] MEDS ORDERED: Gadodiamide 287 mg/ml 20 ml IV ONE (10:00)
[2017-01-03] MEDS ORDERED: Propofol 10 mg/ml Inj (20 ML) ONE (10:45)
[2017-01-03] MEDS ORDERED: Succinylcholine Chloride 20 mg/ml Syr (5 ml) IV ONE (10:45)
[2017-01-03] MEDS ORDERED: Rocuronium 10 mg/ml (5 ml) ONE (10:46)
[2017-01-03] MEDS ORDERED: White Petrolatum/Mineral Oil Ophth Oint(3.5 gm) ONE (10:47)
[2017-01-03] MEDS ORDERED: HYDROmorphone 0.5 mg/0.5 ml ISec IVP PRN (11:51)
--- NOTE | 2017-01-03 12:55 | CP.PCM.CON ---
<Tiago Brewster - Last Filed: 01/03/17 19:00> History of Present Illness - History of Present Illness History of Present Illness: General Surgery Consult Note for Dr. Copeland Reason for consult: Abd pain, Cholelithiasis and Choledolcholithiasis 36 F s/p ERCP with sphincterotomy and CBD stone removal presents with abdominal pain, cholelithiasis and choledolcholithiasis. Patient interviewed and examined in ENDO recovery. She just had ERCP with Dr. Hayden where he removed the stone. Patient states that she came to ER on Friday because she was experiencing abd pain and nausea/vomiting (non-bloody and bilious). She reports to having the pain intermittently for 2 weeks. She states that pain had gotten progressively worse over that time. It was associated with eating along with vomting. She was unable to tolerate regular food. Before the two weeks, she had never the pain. She reported that pain at worst was 10/10. She currently is denying any pain. She described the pain as intermittent and sharp that radiated from RUQ to epigastrum. Zantac relieved her symptoms while eating exacerbated it, previously. Currently denies any alleviating or exacerbating factors. Also denies fever/chills, cp, sob, n/v/d, constipation. 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 Past Patient History - Past Medical History & Family History Past Medical History?: Yes - Past Social History Smoking Status: Never Smoked - CARDIAC Hx Cardiac Disorders: No - PULMONARY Hx Respiratory Disorders: No - NEUROLOGICAL Hx Neurological Disorder: No - HEENT Hx HEENT Problems: No - RENAL Hx Chronic Kidney Disease: No - ENDOCRINE/METABOLIC Hx Endocrine Disorders: No - HEMATOLOGICAL/ONCOLOGICAL Hx Blood Disorders: No - INTEGUMENTARY Hx Dermatological Problems: No - MUSCULOSKELETAL/RHEUMATOLOGICAL Hx Falls: No - GASTROINTESTINAL Hx Gastrointestinal Disorders: No - GENITOURINARY/GYNECOLOGICAL Hx Genitourinary Disorders: No - PSYCHIATRIC Hx Substance Use: No - SURGICAL HISTORY Hx Surgeries: No - ANESTHESIA Hx Anesthesia: No Hx Anesthesia Reactions: No Hx Malignant Hyperthermia: No Has any member of the family had a problem w/ anesthesia?: No Meds Allergies/Adverse Reactions: Allergies Allergy/AdvReac Type Severity Reaction Status Date / Time No Known Allergies Allergy Verified 01/01/17 17:02 - Medications Medications: Current Medications Famotidine (Pepcid) 20 mg PO DAILY [facility] Last Admin: 01/02/17 10:29 Dose: Not Given Heparin Sodium (Porcine) (Heparin) 5,000 units SC Q12 [facility] Last Admin: 01/02/17 10:33 Dose: 5,000 units Hydromorphone HCl (Dilaudid) 0.5 mg IVP Q15M PRN PRN Reason: Pain, moderate (4-7) Stop: 01/03/17 13:52 Last Admin: 01/03/17 12:13 Dose: 0.5 mg Lactated Ringer's (Lactated Ringer's) 1,000 mls @ 100 mls/hr IV .Q10H [facility] Ondansetron HCl (Zofran Inj) 4 mg IVP Q6H PRN PRN Reason: Nausea/Vomiting Pneumococcal Polyvalent Vaccine (Pneumovax 23 Vaccine) 0.5 ml IM .ONCE ONE Stop: 01/04/17 10:01 Physical Exam - Constitutional Appears: No Acute Distress - Head Exam Head Exam: ATRAUMATIC, NORMOCEPHALIC - Eye Exam Eye Exam: Normal appearance. absent: Scleral icterus - ENT Exam ENT Exam: Mucous Membranes Moist - Neck Exam Neck exam: Positive for: Full Rom - Respiratory Exam Respiratory Exam: NORMAL BREATHING PATTERN - Cardiovascular Exam Cardiovascular Exam: REGULAR RHYTHM - GI/Abdominal Exam GI & Abdominal Exam: Soft. absent: Distended, Firm, Guarding, Rebound, Rigid, Tenderness Additional comments: (-) Solorio's sign - Extremities Exam Extremities exam: Positive for: normal capillary refill, pedal pulses present. Negative for: calf tenderness - Back Exam Back exam: absent: CVA tenderness (L), CVA tenderness (R) - Neurological Exam Neurological exam: Alert, CN II-XII Intact, Oriented x3 - Psychiatric Exam Psychiatric exam: Normal Affect, Normal Mood - Skin Skin Exam: Dry, Intact, Normal Color, Warm Results - Vital Signs Recent Vital Signs: Last Vital Signs Temp 97.4 F L 01/03/17 11:46 Pulse 60 01/03/17 12:46 Resp 15 01/03/17 12:46 BP 133/82 01/03/17 12:46 Pulse Ox 100 01/03/17 12:46 - Labs Result Diagrams: 01/03/17 07:52 01/03/17 07:52 Labs: Laboratory Results - last 24 hr 01/03/17 01/03/17 01/03/17 07:03 07:52 07:52 WBC 7.4 RBC 4.66 Hgb 12.6 Hct 37.4 MCV 80.2 L MCH 27.1 MCHC 33.8 RDW 13.4 Plt Count 351 MPV 7.9 Neut % (Auto) 51.9 Lymph % (Auto) 39.4 Garvin % (Auto) 6.5 Eos % (Auto) 1.7 Baso % (Auto) 0.5 Neut # 3.8 Lymph # 2.9 Garvin # 0.5 Eos # 0.1 Baso # 0.0 Sodium 139 Potassium 3.9 Chloride 99 Carbon Dioxide 25 Anion Gap 19 BUN 10 Creatinine 0.7 Est GFR ( Amer) > 60 Est GFR (Non-Af Amer) > 60 Random Glucose 97 Calcium 9.4 Total Bilirubin 0.6 AST 31 ALT 145 H Alkaline Phosphatase 72 Total Protein 7.5 Albumin 4.1 Globulin 3.4 Albumin/Globulin Ratio 1.2 Urine HCG, Qual Negative IgG ZOE 6 Profile 01/03/17 01/03/17 07:52 07:52 WBC RBC Hgb Hct MCV MCH MCHC RDW Plt Count MPV Neut % (Auto) Lymph % (Auto) Garvin % (Auto) Eos % (Auto) Baso % (Auto) Neut # Lymph # Garvin # Eos # Baso # Sodium Potassium Chloride Carbon Dioxide Anion Gap BUN Creatinine Est GFR ( Amer) Est GFR (Non-Af Amer) Random Glucose Calcium Total Bilirubin AST ALT Alkaline Phosphatase Total Protein Albumin Globulin Albumin/Globulin Ratio Urine HCG, Qual IgG 1290.3 ZOE 6 Profile Negative Assessment & Plan - Assessment and Plan (Free Text) Plan: 36 F s/p ERCP with sphincterotomy and CBD stone removal POD #0 presents with cholelithiasis and choledolcholithiasis -CLD -IV fluids -Anti-emetics/Analgesics PRN -Plan for Laparoscopic Cholecystectomy in [place] on Friday -DW Dr. Dinorah Brewster PGY1 <Chuck Copeland - Last Filed: 01/06/17 09:45> Meds - Medications Medications: Current Medications Acetaminophen (Tylenol 325mg Tab) 650 mg PO Q6 PRN PRN Reason: Fever >100.4 F Last Admin: 01/03/17 23:24 Dose: 650 mg Famotidine (Pepcid) 20 mg PO DAILY [facility] Last Admin: 01/05/17 10:16 Dose: 20 mg Heparin Sodium (Porcine) (Heparin) 5,000 units SC Q12 [facility] Last Admin: 01/02/17 10:33 Dose: 5,000 units Lactated Ringer's (Lactated Ringer's) 1,000 mls @ 100 mls/hr IV .Q10H [facility] Last Admin: 01/05/17 05:00 Dose: Not Given Morphine Sulfate (Morphine) 4 mg IVP Q4 PRN PRN Reason: Pain, Mild (1-3) Last Admin: 01/04/17 23:06 Dose: 4 mg Ondansetron HCl (Zofran Inj) 4 mg IVP Q6H PRN PRN Reason: Nausea/Vomiting Last Admin: 01/03/17 21:51 Dose: 4 mg Pneumococcal Polyvalent Vaccine (Pneumovax 23 Vaccine) 0.5 ml IM .ONCE ONE Stop: 01/07/17 10:01 Results - Vital Signs Recent Vital Signs: Last Vital Signs Temp 97.8 F 01/06/17 08:10 Pulse 71 01/06/17 08:10 Resp 20 01/06/17 08:10 BP 120/78 01/06/17 08:10 Pulse Ox 99 01/06/17 08:10 - Labs Result Diagrams: 01/06/17 08:02 01/06/17 08:02 Labs: Laboratory Results - last 24 hr 01/06/17 01/06/17 01/06/17 08:02 08:02 09:10 WBC 8.0 RBC 4.55 Hgb 12.0 Hct 36.5 MCV 80.2 L MCH 26.3 L MCHC 32.8 L RDW 13.0 Plt Count 341 MPV 7.9 Neut % (Auto) 59.0 Lymph % (Auto) 30.6 Garvin % (Auto) 8.0 Eos % (Auto) 1.9 Baso % (Auto) 0.5 Neut # 4.7 Lymph # 2.4 Garvin # 0.6 Eos # 0.1 Baso # 0.0 Sodium 140 Potassium 3.9 Chloride 100 Carbon Dioxide 26 Anion Gap 18 BUN 10 Creatinine 0.8 Est GFR ( Amer) > 60 Est GFR (Non-Af Amer) > 60 Random Glucose 87 Calcium 9.0 Total Bilirubin 0.4 AST 18 ALT 72 H D Alkaline Phosphatase 64 Total Protein 7.2 Albumin 3.9 Globulin 3.3 Albumin/Globulin Ratio 1.2 Urine HCG, Qual Negative Attending/Attestation - Attestation I have personally seen and examined this patient.: Yes I have fully participated in the care of the patient.: Yes I have reviewed all pertinent clinical information: Yes Notes (Text): 01/06/17 09:44 Pt was seen and examined at bedside Agree with above note and assessment Pt with cholelithiasis and CBD stone s/p ERCP RUQ tenderness repeat LFT and Lipase Plan d.w pt in detail Risk and benefit explained in detail.
--- NOTE | 2017-01-03 14:30 | CARD ---
APPROVED REPORT EKG Measurement Heart [id number] CO [id number] [id number] <Conclusion> Normal sinus rhythm Inferior infarct, age undetermined Cannot rule out Anterior infarct, age undetermined Abnormal ECG
[2017-01-03] MEDS: Lactated Ringer's 1,000 ML IV SCH ×2 (14:50→21:46)
--- NOTE | 2017-01-03 22:23 | CP.PCM.PN ---
<Yann Miranda - Last Filed: 01/04/17 00:47> Subjective - Date & Time of Evaluation Date of Evaluation: 01/03/17 Time of Evaluation: 07:00 - Subjective Subjective: PGY1 Medicine Note for Dr. Quiroz Patient seen and examined at bedside this morning. Patient currently NPO for ERCP/EGD this morning with Dr. Quinones. Patient has no complaints and states that she currently feels normal. Denies f/c, n/v, d/c, sob, cp, headache, abd pain, numbness or tingling. Objective - Vital Signs/Intake and Output Vital Signs (last 24 hours): Temp Pulse Resp BP Pulse Ox 98.2 F 73 20 117/78 100 01/03/17 16:00 01/03/17 16:00 01/03/17 16:00 01/03/17 16:00 01/03/17 16:00 Intake and Output: 01/03/17 01/04/17 18:59 06:59 Intake Total 1600 Output Total 600 Balance 1000 - Medications Medications: Current Medications Famotidine (Pepcid) 20 mg PO DAILY [facility] Last Admin: 01/03/17 10:57 Dose: Not Given Heparin Sodium (Porcine) (Heparin) 5,000 units SC Q12 [facility] Last Admin: 01/02/17 10:33 Dose: 5,000 units Lactated Ringer's (Lactated Ringer's) 1,000 mls @ 100 mls/hr IV .Q10H [facility] Last Admin: 01/03/17 21:46 Dose: Not Given Ondansetron HCl (Zofran Inj) 4 mg IVP Q6H PRN PRN Reason: Nausea/Vomiting Last Admin: 01/03/17 21:51 Dose: 4 mg Pneumococcal Polyvalent Vaccine (Pneumovax 23 Vaccine) 0.5 ml IM .ONCE ONE Stop: 01/04/17 10:01 - Labs Labs: 01/03/17 07:52 01/03/17 07:52 PT 11.9 SECONDS (9.7-12.2) 01/02/17 01:25 INR 1.1 01/02/17 01:25 APTT 39 SECONDS (21-34) H 01/02/17 01:25 - Constitutional Appears: Non-toxic, No Acute Distress - Head Exam Head Exam: ATRAUMATIC, NORMOCEPHALIC - Eye Exam Eye Exam: EOMI, Normal appearance - ENT Exam ENT Exam: Mucous Membranes Moist - Respiratory Exam Respiratory Exam: Clear to Ausculation Bilateral, NORMAL BREATHING PATTERN. absent: Accessory Muscle Use, Rales, Rhonchi, Wheezes, Respiratory Distress - Cardiovascular Exam Cardiovascular Exam: REGULAR RHYTHM, +S1, +S2 - GI/Abdominal Exam GI & Abdominal Exam: Soft, Normal Bowel Sounds. absent: Distended, Firm, Guarding, Rigid, Tenderness - Extremities Exam Extremities Exam: Normal Inspection. absent: Calf Tenderness, Pedal Edema - Back Exam Back Exam: NORMAL INSPECTION. absent: CVA tenderness (L), CVA tenderness (R), paraspinal tenderness, vertebral tenderness - Neurological Exam Neurological Exam: Alert, Awake, Normal Gait, Oriented x3 - Psychiatric Exam Psychiatric exam: Normal Affect, Normal Mood - Skin Skin Exam: Dry, Intact, Normal Color, Warm Assessment and Plan - Assessment and Plan (Free Text) Assessment: (1) Cholelithiases Abd U/S: gallstones, CBD mildly dilated at 8mm, mild hepatomegaly GI consulted, Dr Bo GI consulted, Dr. Quinones - ERCP MRCP abdomen w and w/o contrast 01/02- shows 3mm stone in distal CBD. EGD/EUS/ERCP 01/03- s/p sphincterotomy and stone extraction Liquid diet advance as tolerated, per GI zofran 4mg ivp q6h prn for n/v Surgery consult, Dr. Copeland * scheduled for lap juno on Friday (2) Prophylactic measure DVT: heparin 5000u sc q12 held - - pt placed on SCDs for DVT ppx at this time GI: famotidine 20mg po daily Diet: NPO past midnight Case discussed with Dr. Richie Lerner Ruben PGY1 <Marquis Quiroz - Last Filed: 01/05/17 13:22> Objective - Vital Signs/Intake and Output Vital Signs (last 24 hours): Temp Pulse Resp BP Pulse Ox 98.2 F 76 20 117/78 98 01/05/17 08:00 01/05/17 08:00 01/05/17 08:00 01/05/17 08:00 01/05/17 08:00 Intake and Output: 01/05/17 01/05/17 06:59 18:59 Intake Total 1000 Balance 1000 - Medications Medications: Current Medications Acetaminophen (Tylenol 325mg Tab) 650 mg PO Q6 PRN PRN Reason: Fever >100.4 F Last Admin: 01/03/17 23:24 Dose: 650 mg Famotidine (Pepcid) 20 mg PO DAILY [facility] Last Admin: 01/05/17 10:16 Dose: 20 mg Heparin Sodium (Porcine) (Heparin) 5,000 units SC Q12 [facility] Last Admin: 01/02/17 10:33 Dose: 5,000 units Lactated Ringer's (Lactated Ringer's) 1,000 mls @ 100 mls/hr IV .Q10H [facility] Last Admin: 01/04/17 18:50 Dose: Not Given Morphine Sulfate (Morphine) 4 mg IVP Q4 PRN PRN Reason: Pain, Mild (1-3) Last Admin: 01/04/17 23:06 Dose: 4 mg Ondansetron HCl (Zofran Inj) 4 mg IVP Q6H PRN PRN Reason: Nausea/Vomiting Last Admin: 01/03/17 21:51 Dose: 4 mg Pneumococcal Polyvalent Vaccine (Pneumovax 23 Vaccine) 0.5 ml IM .ONCE ONE Stop: 01/07/17 10:01 - Labs Labs: 01/05/17 07:55 01/05/17 07:55 PT 11.9 SECONDS (9.7-12.2) 01/02/17 01:25 INR 1.1 01/02/17 01:25 APTT 39 SECONDS (21-34) H 01/02/17 01:25 Attending/Attestation - Attestation I have personally seen and examined this patient.: Yes I have fully participated in the care of the patient.: Yes I have reviewed all pertinent clinical information, including history, physical exam and plan: Yes Notes (Text): choledocholithiasis s/p ERCP Planned OR friday for cholecystectomy
[2017-01-03] MEDS: Morphine 4 MG/ML VIAL IVP PRN (23:19)
--- NOTE | 2017-01-04 01:22 | CP.PCM.PN ---
<Tyler Smith S - Last Filed: 01/04/17 09:26> Subjective - Date & Time of Evaluation Date of Evaluation: 01/04/17 Time of Evaluation: 06:50 - Subjective Subjective: PGY-[address] Quiroz Patient seen and examined at bedside. Patient s/p day 1 of ERCP. Patient complains of epigastric abdominal pain. Patient states that it is an 8/10 without any pain medications. Patient also complained of fever overnight. Patient denies chills, chest pain, dyspnea, dysuria. Objective - Vital Signs/Intake and Output Vital Signs (last 24 hours): Temp Pulse Resp BP Pulse Ox 99 F 90 20 106/67 96 01/04/17 00:00 01/04/17 00:00 01/04/17 00:00 01/04/17 00:00 01/04/17 00:00 Intake and Output: 01/03/17 01/04/17 18:59 06:59 Intake Total 1600 940 Output Total 600 700 Balance 1000 240 - Medications Medications: Current Medications Acetaminophen (Tylenol 325mg Tab) 650 mg PO Q6 PRN PRN Reason: Fever >100.4 F Last Admin: 01/03/17 23:24 Dose: 650 mg Famotidine (Pepcid) 20 mg PO DAILY [facility] Last Admin: 01/03/17 10:57 Dose: Not Given Heparin Sodium (Porcine) (Heparin) 5,000 units SC Q12 [facility] Last Admin: 01/02/17 10:33 Dose: 5,000 units Lactated Ringer's (Lactated Ringer's) 1,000 mls @ 100 mls/hr IV .Q10H [facility] Last Admin: 01/03/17 21:46 Dose: Not Given Morphine Sulfate (Morphine) 4 mg IVP Q4 PRN PRN Reason: Pain, Mild (1-3) Last Admin: 01/03/17 23:19 Dose: 4 mg Ondansetron HCl (Zofran Inj) 4 mg IVP Q6H PRN PRN Reason: Nausea/Vomiting Last Admin: 01/03/17 21:51 Dose: 4 mg Pneumococcal Polyvalent Vaccine (Pneumovax 23 Vaccine) 0.5 ml IM .ONCE ONE Stop: 01/04/17 10:01 - Labs Labs: 01/03/17 07:52 01/03/17 07:52 PT 11.9 SECONDS (9.7-12.2) 01/02/17 01:25 INR 1.1 01/02/17 01:25 APTT 39 SECONDS (21-34) H 01/02/17 01:25 - Constitutional Appears: No Acute Distress - Head Exam Head Exam: ATRAUMATIC, NORMOCEPHALIC - Eye Exam Eye Exam: EOMI, PERRL - ENT Exam ENT Exam: Mucous Membranes Moist - Respiratory Exam Respiratory Exam: Clear to Ausculation Bilateral. absent: Rales, Rhonchi, Wheezes - Cardiovascular Exam Cardiovascular Exam: REGULAR RHYTHM, +S1, +S2 - GI/Abdominal Exam GI & Abdominal Exam: Soft, Tenderness (epigastric tenderness. Right upper quadrant tenderness with deep palpation), Normal Bowel Sounds - Extremities Exam Extremities Exam: absent: Calf Tenderness, Pedal Edema - Neurological Exam Neurological Exam: Alert, Awake, Oriented x3 - Psychiatric Exam Psychiatric exam: Normal Affect, Normal Mood - Skin Skin Exam: Dry, Intact, Warm Assessment and Plan - Assessment and Plan (Free Text) Plan: (1) Cholelithiases Abd U/S: gallstones, CBD mildly dilated at 8mm, mild hepatomegaly GI consulted, Dr Bo GI consulted, Dr. Quinones - ERCP MRCP abdomen w and w/o contrast 01/02- shows 3mm stone in distal CBD. EGD/EUS/ERCP 01/03- s/p sphincterotomy and stone extraction Liquid diet advance as tolerated, per GI zofran 4mg ivp q6h prn for n/v Surgery consult, Dr. Copeland * scheduled for lap juno on Friday Pain management per surgery: Morphine 4 mg IV Q4H prn (2) Prophylactic measure DVT: heparin 5000u sc q12 held - - pt placed on SCDs for DVT ppx at this time GI: famotidine 20mg po daily Diet: Liquid Diet 100.5 Tmax overnight: Tylenol 650 mg Q6 prn fever added Will discuss case with Dr. Richie Smith PGY-1 <Marquis Quiroz - Last Filed: 01/05/17 13:28> Objective - Vital Signs/Intake and Output Vital Signs (last 24 hours): Temp Pulse Resp BP Pulse Ox 98.2 F 76 20 117/78 98 01/05/17 08:00 01/05/17 08:00 01/05/17 08:00 01/05/17 08:00 01/05/17 08:00 Intake and Output: 01/05/17 01/05/17 06:59 18:59 Intake Total 1000 Balance 1000 - Medications Medications: Current Medications Acetaminophen (Tylenol 325mg Tab) 650 mg PO Q6 PRN PRN Reason: Fever >100.4 F Last Admin: 01/03/17 23:24 Dose: 650 mg Famotidine (Pepcid) 20 mg PO DAILY [facility] Last Admin: 01/05/17 10:16 Dose: 20 mg Heparin Sodium (Porcine) (Heparin) 5,000 units SC Q12 [facility] Last Admin: 01/02/17 10:33 Dose: 5,000 units Lactated Ringer's (Lactated Ringer's) 1,000 mls @ 100 mls/hr IV .Q10H [facility] Last Admin: 01/04/17 18:50 Dose: Not Given Morphine Sulfate (Morphine) 4 mg IVP Q4 PRN PRN Reason: Pain, Mild (1-3) Last Admin: 01/04/17 23:06 Dose: 4 mg Ondansetron HCl (Zofran Inj) 4 mg IVP Q6H PRN PRN Reason: Nausea/Vomiting Last Admin: 01/03/17 21:51 Dose: 4 mg Pneumococcal Polyvalent Vaccine (Pneumovax 23 Vaccine) 0.5 ml IM .ONCE ONE Stop: 01/07/17 10:01 - Labs Labs: 01/05/17 07:55 01/05/17 07:55 PT 11.9 SECONDS (9.7-12.2) 01/02/17 01:25 INR 1.1 01/02/17 01:25 APTT 39 SECONDS (21-34) H 01/02/17 01:25 Attending/Attestation - Attestation I have personally seen and examined this patient.: Yes I have fully participated in the care of the patient.: Yes I have reviewed all pertinent clinical information, including history, physical exam and plan: Yes Notes (Text): choledocholithiasis s/p ERCP Planned OR friday for cholecystectomy
[2017-01-04 07:25] LABS: BASO % 0.2 % (0.0-2.0); EOS % 0.3 % (0.0-4.0); HEMATOCRIT 35.7 % (34.0-47.0); LYMPH # 0.9 K/uL (1.0-4.3); LYMPH % 8.6 % (20.0-40.0); MEAN CELL VOLUME 79.3 fL (81.0-99.0); MEAN CORPUSCULAR HEMOGLOBIN 26.9 pg (27.0-31.0); MEAN CORPUSCULAR HGB CONC 33.9 g/dL (33.0-37.0); MEAN PLATELET VOLUME 7.8 fL (7.2-11.7); MONO # 0.5 K/uL (0.0-0.8); MONO % 4.6 % (0.0-10.0); PLATELET COUNT 299 K/uL (130-400); RED CELL DISTRIBUTION WIDTH 13.1 % (11.5-14.5); WHITE BLOOD COUNT 10.7 K/uL (4.8-10.8)
[2017-01-04] MEDS: Lactated Ringer's 1,000 ML IV SCH ×2 (07:30→18:50)
--- NOTE | 2017-01-04 07:49 | CP.PCM.PN ---
<Scott Blount Ricardo - Last Filed: 01/04/17 07:47> Subjective - Date & Time of Evaluation Date of Evaluation: 01/04/17 Time of Evaluation: 07:47 - Subjective Subjective: Gen Sx: Dr Copeland Pt S&E. ALICIA. Reports pain improved after pain medication ordered. Denies any N/V, F/C. Passing flatus. Would like to remain until friday for Lap Marycruz. Objective - Vital Signs/Intake and Output Vital Signs (last 24 hours): Temp Pulse Resp BP Pulse Ox 99 F 90 20 106/67 96 01/04/17 00:00 01/04/17 00:00 01/04/17 00:00 01/04/17 00:00 01/04/17 00:00 Intake and Output: 01/04/17 01/04/17 06:59 18:59 Intake Total 1740 Output Total 700 Balance 1040 - Medications Medications: Current Medications Acetaminophen (Tylenol 325mg Tab) 650 mg PO Q6 PRN PRN Reason: Fever >100.4 F Last Admin: 01/03/17 23:24 Dose: 650 mg Famotidine (Pepcid) 20 mg PO DAILY [facility] Last Admin: 01/03/17 10:57 Dose: Not Given Heparin Sodium (Porcine) (Heparin) 5,000 units SC Q12 [facility] Last Admin: 01/02/17 10:33 Dose: 5,000 units Lactated Ringer's (Lactated Ringer's) 1,000 mls @ 100 mls/hr IV .Q10H [facility] Last Admin: 01/04/17 07:30 Dose: 100 mls/hr Morphine Sulfate (Morphine) 4 mg IVP Q4 PRN PRN Reason: Pain, Mild (1-3) Last Admin: 01/03/17 23:19 Dose: 4 mg Ondansetron HCl (Zofran Inj) 4 mg IVP Q6H PRN PRN Reason: Nausea/Vomiting Last Admin: 01/03/17 21:51 Dose: 4 mg Pneumococcal Polyvalent Vaccine (Pneumovax 23 Vaccine) 0.5 ml IM .ONCE ONE Stop: 01/04/17 10:01 - Labs Labs: 01/04/17 07:03 01/03/17 07:52 PT 11.9 SECONDS (9.7-12.2) 01/02/17 01:25 INR 1.1 01/02/17 01:25 APTT 39 SECONDS (21-34) H 01/02/17 01:25 - Constitutional Appears: Non-toxic, No Acute Distress - Respiratory Exam Respiratory Exam: absent: Accessory Muscle Use, Respiratory Distress - Cardiovascular Exam Cardiovascular Exam: REGULAR RHYTHM - GI/Abdominal Exam GI & Abdominal Exam: Soft, Tenderness (RUQ but improved). absent: Distended, Firm, Guarding - Neurological Exam Neurological Exam: Alert, Awake, Oriented x3 Assessment and Plan - Assessment and Plan (Free Text) Assessment: 36F with choledocholithiasis; s/p ERCP Plan: Lap Marycruz planned for friday CLD until then, NPO @ [place] d/w Dr Dinorah Blount, PGY3 <Chuck Copeland - Last Filed: 01/06/17 09:46> Objective - Vital Signs/Intake and Output Vital Signs (last 24 hours): Temp Pulse Resp BP Pulse Ox 97.8 F 71 20 120/78 99 01/06/17 08:10 01/06/17 08:10 01/06/17 08:10 01/06/17 08:10 01/06/17 08:10 Intake and Output: 01/06/17 01/06/17 06:59 18:59 Intake Total 500 Balance 500 - Medications Medications: Current Medications Acetaminophen (Tylenol 325mg Tab) 650 mg PO Q6 PRN PRN Reason: Fever >100.4 F Last Admin: 01/03/17 23:24 Dose: 650 mg Famotidine (Pepcid) 20 mg PO DAILY [facility] Last Admin: 01/05/17 10:16 Dose: 20 mg Heparin Sodium (Porcine) (Heparin) 5,000 units SC Q12 [facility] Last Admin: 01/02/17 10:33 Dose: 5,000 units Lactated Ringer's (Lactated Ringer's) 1,000 mls @ 100 mls/hr IV .Q10H [facility] Last Admin: 01/05/17 05:00 Dose: Not Given Morphine Sulfate (Morphine) 4 mg IVP Q4 PRN PRN Reason: Pain, Mild (1-3) Last Admin: 01/04/17 23:06 Dose: 4 mg Ondansetron HCl (Zofran Inj) 4 mg IVP Q6H PRN PRN Reason: Nausea/Vomiting Last Admin: 01/03/17 21:51 Dose: 4 mg Pneumococcal Polyvalent Vaccine (Pneumovax 23 Vaccine) 0.5 ml IM .ONCE ONE Stop: 01/07/17 10:01 - Labs Labs: 01/06/17 08:02 01/06/17 08:02 PT 11.9 SECONDS (9.7-12.2) 01/02/17 01:25 INR 1.1 01/02/17 01:25 APTT 39 SECONDS (21-34) H 01/02/17 01:25 Attending/Attestation - Attestation I have fully participated in the care of the patient.: Yes I have reviewed all pertinent clinical information, including history, physical exam and plan: Yes Notes (Text): 01/06/17 09:45 Pt with cholelithiasis and CBD stone s/p ERCP RUQ tenderness Labs WNL OR for Lap Cholecystectomy on friday Plan d.w primary team in detail
[2017-01-04 08:05] LABS: CHLORIDE 95 mmol/L (98-107)
[2017-01-04 08:06] LABS: POTASSIUM 3.7 mmol/L (3.6-5.2); SODIUM 136 mmol/L (132-148)
[2017-01-04 08:08] LABS: ALB/GLOB RATIO 1.1 (1.0-2.1); ALKALINE PHOSPHATASE 79 U/L (38-126); AST/SGOT 32 U/L (14-36); BILIRUBIN,TOTAL 0.9 mg/dL (0.2-1.3); BLOOD UREA NITROGEN 9 mg/dL (7-17); CARBON DIOXIDE 25 mmol/L (22-30); GFR AFRICAN-AMERICAN > 60; GLUCOSE,RANDOM 107 mg/dL (65-105); TOTAL PROTEIN 7.1 g/dL (6.3-8.3)
[2017-01-04 08:09] LABS: ALT/SGPT 105 U/L (9-52); CALCIUM 8.6 mg/dl (8.6-10.4)
[2017-01-04 09:26] LABS: NEUTROPHIL 88 % (50-75); TOTAL CELLS COUNTED 100
[2017-01-04] MEDS ORDERED: Influenza Virus Vaccine (Afluria Inactive dont use ) IM ONE (10:00)
[2017-01-04] MEDS ORDERED: Pneumococcal 23-Valent Vaccine IM ONE (10:00)
[2017-01-04] MEDS ORDERED: Influenza Vaccine 60 mcg/0.5 mL SYR (4YR UP) IM ONE (12:00)
--- NOTE | 2017-01-04 14:10 | CP.PCM.PN ---
<Lauren Goodman - Last Filed: 01/04/17 14:06> Subjective - Date & Time of Evaluation Date of Evaluation: 01/04/17 Time of Evaluation: 07:00 - Subjective Subjective: PGY4 GI Follow Up Pt seen and examined bedside States that abd pain has sig improved +BM tolerating diet denies any nausea, vomiting, or diarrhea ROS: 10 point ROS conducted, neg other than above Objective - Vital Signs/Intake and Output Vital Signs (last 24 hours): Temp Pulse Resp BP Pulse Ox 99.6 F 86 20 99/63 L 96 01/04/17 07:47 01/04/17 07:47 01/04/17 07:47 01/04/17 07:47 01/04/17 07:47 Intake and Output: 01/04/17 01/04/17 06:59 18:59 Intake Total 1740 Output Total 700 Balance 1040 - Medications Medications: Current Medications Acetaminophen (Tylenol 325mg Tab) 650 mg PO Q6 PRN PRN Reason: Fever >100.4 F Last Admin: 01/03/17 23:24 Dose: 650 mg Famotidine (Pepcid) 20 mg PO DAILY ANA Last Admin: 01/04/17 10:54 Dose: 20 mg Heparin Sodium (Porcine) (Heparin) 5,000 units SC Q12 ANA Last Admin: 01/02/17 10:33 Dose: 5,000 units Lactated Ringer's (Lactated Ringer's) 1,000 mls @ 100 mls/hr IV .Q10H ANA Last Admin: 01/04/17 07:30 Dose: 100 mls/hr Morphine Sulfate (Morphine) 4 mg IVP Q4 PRN PRN Reason: Pain, Mild (1-3) Last Admin: 01/03/17 23:19 Dose: 4 mg Ondansetron HCl (Zofran Inj) 4 mg IVP Q6H PRN PRN Reason: Nausea/Vomiting Last Admin: 01/03/17 21:51 Dose: 4 mg - Labs Labs: 01/04/17 07:03 01/04/17 07:03 PT 11.9 SECONDS (9.7-12.2) 01/02/17 01:25 INR 1.1 01/02/17 01:25 APTT 39 SECONDS (21-34) H 01/02/17 01:25 - Constitutional Appears: Well, No Acute Distress - Head Exam Head Exam: ATRAUMATIC, NORMOCEPHALIC - Eye Exam Eye Exam: Normal appearance - ENT Exam ENT Exam: Mucous Membranes Moist - Respiratory Exam Respiratory Exam: Clear to Ausculation Bilateral, NORMAL BREATHING PATTERN. absent: Rales, Rhonchi, Wheezes, Respiratory Distress - Cardiovascular Exam Cardiovascular Exam: REGULAR RHYTHM, +S1, +S2 - GI/Abdominal Exam GI & Abdominal Exam: Soft, Normal Bowel Sounds. absent: Guarding, Rigid, Tenderness, Hernia, Mass, Organomegaly - Extremities Exam Extremities Exam: absent: Joint Swelling, Pedal Edema - Back Exam Back Exam: NORMAL INSPECTION - Neurological Exam Neurological Exam: Alert, Awake, Oriented x3 - Psychiatric Exam Psychiatric exam: Normal Affect, Normal Mood - Skin Skin Exam: Dry, Intact, Normal Color, Warm Assessment and Plan - Assessment and Plan (Free Text) Assessment: Patient is a 36yo female with no significant past medical history who presented to the ED with abdominal pain. -choledocolithiasis, s/p ERCP ballooning and sweep -Cholelithiasis -Transaminasemia Plan: -s/p ERCP -LFTs trending down -advance diet as tolerated -plan for Lap juno on friday -continue abx as per surgery -DVT pc GI px -will sign off, please reconsult if needed -follow-up with Dr. Quinones as oupt d/w Dr. Alegria <Raji COREAS,[facility] - Last Filed: 01/04/17 18:12> Objective - Vital Signs/Intake and Output Vital Signs (last 24 hours): Temp Pulse Resp BP Pulse Ox 98.1 F 88 20 123/76 98 01/04/17 15:59 01/04/17 15:59 01/04/17 15:59 01/04/17 15:59 01/04/17 15:59 Intake and Output: 01/04/17 01/04/17 06:59 18:59 Intake Total 1740 Output Total 700 Balance 1040 - Medications Medications: Current Medications Acetaminophen (Tylenol 325mg Tab) 650 mg PO Q6 PRN PRN Reason: Fever >100.4 F Last Admin: 01/03/17 23:24 Dose: 650 mg Famotidine (Pepcid) 20 mg PO DAILY ANA Last Admin: 01/04/17 10:54 Dose: 20 mg Heparin Sodium (Porcine) (Heparin) 5,000 units SC Q12 ANA Last Admin: 01/02/17 10:33 Dose: 5,000 units Lactated Ringer's (Lactated Ringer's) 1,000 mls @ 100 mls/hr IV .Q10H ANA Last Admin: 01/04/17 07:30 Dose: 100 mls/hr Morphine Sulfate (Morphine) 4 mg IVP Q4 PRN PRN Reason: Pain, Mild (1-3) Last Admin: 01/03/17 23:19 Dose: 4 mg Ondansetron HCl (Zofran Inj) 4 mg IVP Q6H PRN PRN Reason: Nausea/Vomiting Last Admin: 01/03/17 21:51 Dose: 4 mg - Labs Labs: 01/04/17 07:03 01/04/17 07:03 PT 11.9 SECONDS (9.7-12.2) 01/02/17 01:25 INR 1.1 01/02/17 01:25 APTT 39 SECONDS (21-34) H 01/02/17 01:25 Attending/Attestation - Attestation I have personally seen and examined this patient.: Yes I have fully participated in the care of the patient.: Yes I have reviewed all pertinent clinical information, including history, physical exam and plan: Yes Notes (Text): 01/04/17 18:09 Patient seen and examined with GI fellow on rounds. This is a 36 yr old female with no significant past medical history who presented to the ED with abdominal pain in setting of choledocolithiasis, s/p ERCP ballooning and sweep. Transaminemia downtrending. Scheduled for lap juno Friday. Tolerating clear liquid diet. Contineu antibiotics as per surgery. No further GI work up required. To follow with Dr Quinones in his office in 4 weeks. Thank you for letting us participate in the care of your patient
[2017-01-04] MEDS: Morphine 4 MG/ML VIAL IVP PRN (23:06)
[2017-01-05] MEDS: Lactated Ringer's 1,000 ML IV SCH (05:00)
[2017-01-05 08:09] LABS: BASO % 0.5 % (0.0-2.0); EOS # 0.2 K/uL (0.0-0.7); EOS % 2.1 % (0.0-4.0); HEMATOCRIT 35.5 % (34.0-47.0); LYMPH # 2.4 K/uL (1.0-4.3); LYMPH % 25.6 % (20.0-40.0); MEAN CELL VOLUME 80.5 fL (81.0-99.0); MEAN CORPUSCULAR HEMOGLOBIN 26.4 pg (27.0-31.0); MEAN CORPUSCULAR HGB CONC 32.7 g/dL (33.0-37.0); MEAN PLATELET VOLUME 7.4 fL (7.2-11.7); MONO # 0.9 K/uL (0.0-0.8); MONO % 9.8 % (0.0-10.0); RED CELL DISTRIBUTION WIDTH 13.2 % (11.5-14.5); WHITE BLOOD COUNT 9.3 K/uL (4.8-10.8)
[2017-01-05 08:21] LABS: CHLORIDE 101 mmol/L (98-107); POTASSIUM 3.7 mmol/L (3.6-5.2); SODIUM 140 mmol/L (132-148)
[2017-01-05 08:23] LABS: BILIRUBIN,TOTAL 0.4 mg/dL (0.2-1.3); CARBON DIOXIDE 26 mmol/L (22-30); GFR AFRICAN-AMERICAN > 60
[2017-01-05 08:24] LABS: ALB/GLOB RATIO 1.1 (1.0-2.1); ALKALINE PHOSPHATASE 68 U/L (38-126); ALT/SGPT 92 U/L (9-52); AST/SGOT 25 U/L (14-36); BLOOD UREA NITROGEN 9 mg/dL (7-17); CALCIUM 8.9 mg/dl (8.6-10.4); GLUCOSE,RANDOM 93 mg/dL (65-105)
--- NOTE | 2017-01-05 10:58 | CP.PCM.PN ---
<Tyler Smith S - Last Filed: 01/05/17 12:02> Subjective - Date & Time of Evaluation Date of Evaluation: 01/05/17 Time of Evaluation: 07:30 - Subjective Subjective: PGY-[address] Quiroz Patient seen and examined at bedside. Patient s/p day 2 of ERCP. Patient states her epigastric abdominal pain is currently controlled. Patient anticipates surgery tomorrow. Patient denies chills, chest pain, dyspnea, dysuria. Objective - Vital Signs/Intake and Output Vital Signs (last 24 hours): Temp Pulse Resp BP Pulse Ox 98.2 F 76 20 117/78 98 01/05/17 08:00 01/05/17 08:00 01/05/17 08:00 01/05/17 08:00 01/05/17 08:00 Intake and Output: 01/05/17 01/05/17 06:59 18:59 Intake Total 1000 Balance 1000 - Medications Medications: Current Medications Acetaminophen (Tylenol 325mg Tab) 650 mg PO Q6 PRN PRN Reason: Fever >100.4 F Last Admin: 01/03/17 23:24 Dose: 650 mg Famotidine (Pepcid) 20 mg PO DAILY [facility] Last Admin: 01/05/17 10:16 Dose: 20 mg Heparin Sodium (Porcine) (Heparin) 5,000 units SC Q12 [facility] Last Admin: 01/02/17 10:33 Dose: 5,000 units Lactated Ringer's (Lactated Ringer's) 1,000 mls @ 100 mls/hr IV .Q10H [facility] Last Admin: 01/04/17 18:50 Dose: Not Given Morphine Sulfate (Morphine) 4 mg IVP Q4 PRN PRN Reason: Pain, Mild (1-3) Last Admin: 01/04/17 23:06 Dose: 4 mg Ondansetron HCl (Zofran Inj) 4 mg IVP Q6H PRN PRN Reason: Nausea/Vomiting Last Admin: 01/03/17 21:51 Dose: 4 mg - Labs Labs: 01/05/17 07:55 01/05/17 07:55 PT 11.9 SECONDS (9.7-12.2) 01/02/17 01:25 INR 1.1 01/02/17 01:25 APTT 39 SECONDS (21-34) H 01/02/17 01:25 - Head Exam Head Exam: ATRAUMATIC, NORMOCEPHALIC - Eye Exam Eye Exam: EOMI, PERRL - ENT Exam ENT Exam: Mucous Membranes Moist - Respiratory Exam Respiratory Exam: Clear to Ausculation Bilateral. absent: Rales, Rhonchi, Wheezes - Cardiovascular Exam Cardiovascular Exam: REGULAR RHYTHM, +S1, +S2 - GI/Abdominal Exam GI & Abdominal Exam: Soft, Tenderness (epigastric tenderness. Right upper quadrant tenderness with deep palpation), Normal Bowel Sounds - Extremities Exam Extremities Exam: absent: Calf Tenderness, Pedal Edema - Neurological Exam Neurological Exam: Alert, Awake, Oriented x3 - Psychiatric Exam Psychiatric exam: Normal Affect, Normal Mood - Skin Skin Exam: Dry, Intact, Normal Color, Warm Assessment and Plan - Assessment and Plan (Free Text) Plan: (1) Cholelithiases Abd U/S: gallstones, CBD mildly dilated at 8mm, mild hepatomegaly GI consulted, Dr Bo GI consulted, Dr. Quinones - ERCP MRCP abdomen w and w/o contrast 01/02- shows 3mm stone in distal CBD. EGD/EUS/ERCP 01/03- s/p sphincterotomy and stone extraction Liquid diet advance as tolerated, per GI zofran 4mg ivp q6h prn for n/v Surgery consult, Dr. Copeland * scheduled for lap juno on Friday Pain management per surgery: Morphine 4 mg IV Q4H prn (2) Prophylactic measure DVT: heparin 5000u sc q12 held - - pt placed on SCDs for DVT ppx at this time GI: famotidine 20mg po daily Diet: Liquid Diet Tylenol 650 mg Q6 prn fever Will discuss case with Dr. Richie Smith PGY-1 <Marquis Quiroz - Last Filed: 01/05/17 13:32> Objective - Vital Signs/Intake and Output Vital Signs (last 24 hours): Temp Pulse Resp BP Pulse Ox 98.2 F 76 20 117/78 98 01/05/17 08:00 01/05/17 08:00 01/05/17 08:00 01/05/17 08:00 01/05/17 08:00 Intake and Output: 01/05/17 01/05/17 06:59 18:59 Intake Total 1000 Balance 1000 - Medications Medications: Current Medications Acetaminophen (Tylenol 325mg Tab) 650 mg PO Q6 PRN PRN Reason: Fever >100.4 F Last Admin: 01/03/17 23:24 Dose: 650 mg Famotidine (Pepcid) 20 mg PO DAILY [facility] Last Admin: 01/05/17 10:16 Dose: 20 mg Heparin Sodium (Porcine) (Heparin) 5,000 units SC Q12 [facility] Last Admin: 01/02/17 10:33 Dose: 5,000 units Lactated Ringer's (Lactated Ringer's) 1,000 mls @ 100 mls/hr IV .Q10H [facility] Last Admin: 01/04/17 18:50 Dose: Not Given Morphine Sulfate (Morphine) 4 mg IVP Q4 PRN PRN Reason: Pain, Mild (1-3) Last Admin: 01/04/17 23:06 Dose: 4 mg Ondansetron HCl (Zofran Inj) 4 mg IVP Q6H PRN PRN Reason: Nausea/Vomiting Last Admin: 01/03/17 21:51 Dose: 4 mg Pneumococcal Polyvalent Vaccine (Pneumovax 23 Vaccine) 0.5 ml IM .ONCE ONE Stop: 01/07/17 10:01 - Labs Labs: 01/05/17 07:55 01/05/17 07:55 PT 11.9 SECONDS (9.7-12.2) 01/02/17 01:25 INR 1.1 01/02/17 01:25 APTT 39 SECONDS (21-34) H 01/02/17 01:25 Attending/Attestation - Attestation I have personally seen and examined this patient.: Yes I have fully participated in the care of the patient.: Yes I have reviewed all pertinent clinical information, including history, physical exam and plan: Yes Notes (Text): choledocholithiasis s/p ERCP Planned OR friday for cholecystectomy
--- NOTE | 2017-01-05 11:56 | CP.PCM.PN ---
<MerchantJimi - Last Filed: 01/05/17 11:53> Subjective - Date & Time of Evaluation Date of Evaluation: 01/05/17 Time of Evaluation: 08:00 - Subjective Subjective: General Surgery- Dr. Copeland Pt S&E at bedside this AM. No acute events overnight. Tolerating diet. +Flatus, +BM +OOB. Denies N/V/D CP/SOB F/C Objective - Vital Signs/Intake and Output Vital Signs (last 24 hours): Temp Pulse Resp BP Pulse Ox 98.2 F 76 20 117/78 98 01/05/17 08:00 01/05/17 08:00 01/05/17 08:00 01/05/17 08:00 01/05/17 08:00 Intake and Output: 01/05/17 01/05/17 06:59 18:59 Intake Total 1000 Balance 1000 - Medications Medications: Current Medications Acetaminophen (Tylenol 325mg Tab) 650 mg PO Q6 PRN PRN Reason: Fever >100.4 F Last Admin: 01/03/17 23:24 Dose: 650 mg Famotidine (Pepcid) 20 mg PO DAILY [facility] Last Admin: 01/05/17 10:16 Dose: 20 mg Heparin Sodium (Porcine) (Heparin) 5,000 units SC Q12 [facility] Last Admin: 01/02/17 10:33 Dose: 5,000 units Lactated Ringer's (Lactated Ringer's) 1,000 mls @ 100 mls/hr IV .Q10H [facility] Last Admin: 01/04/17 18:50 Dose: Not Given Morphine Sulfate (Morphine) 4 mg IVP Q4 PRN PRN Reason: Pain, Mild (1-3) Last Admin: 01/04/17 23:06 Dose: 4 mg Ondansetron HCl (Zofran Inj) 4 mg IVP Q6H PRN PRN Reason: Nausea/Vomiting Last Admin: 01/03/17 21:51 Dose: 4 mg - Labs Labs: 01/05/17 07:55 01/05/17 07:55 PT 11.9 SECONDS (9.7-12.2) 01/02/17 01:25 INR 1.1 01/02/17 01:25 APTT 39 SECONDS (21-34) H 01/02/17 01:25 - Constitutional Appears: Non-toxic, No Acute Distress - Head Exam Head Exam: ATRAUMATIC - Eye Exam Eye Exam: EOMI. absent: Scleral icterus - ENT Exam ENT Exam: Mucous Membranes Moist - Respiratory Exam Respiratory Exam: NORMAL BREATHING PATTERN. absent: Accessory Muscle Use, Respiratory Distress - Cardiovascular Exam Cardiovascular Exam: +S1, +S2. absent: Bradycardia, Tachycardia - GI/Abdominal Exam GI & Abdominal Exam: Soft. absent: Distended, Firm, Rigid, Tenderness - Neurological Exam Neurological Exam: Alert, Awake, Oriented x3 - Psychiatric Exam Psychiatric exam: Normal Affect - Skin Skin Exam: Normal Color Assessment and Plan - Assessment and Plan (Free Text) Assessment: 36F choledocholithiasis s/p ERCP Plan: - OR tomorrow (Friday)- Lap Marycruz - NPO at OR - IVF - GI/DVT ppx - further recs per Dr. Dinorah Light PGY1 <Chuck Copeland - Last Filed: 01/06/17 09:47> Objective - Vital Signs/Intake and Output Vital Signs (last 24 hours): Temp Pulse Resp BP Pulse Ox 97.8 F 71 20 120/78 99 01/06/17 08:10 01/06/17 08:10 01/06/17 08:10 01/06/17 08:10 01/06/17 08:10 Intake and Output: 01/06/17 01/06/17 06:59 18:59 Intake Total 500 Balance 500 - Medications Medications: Current Medications Acetaminophen (Tylenol 325mg Tab) 650 mg PO Q6 PRN PRN Reason: Fever >100.4 F Last Admin: 01/03/17 23:24 Dose: 650 mg Famotidine (Pepcid) 20 mg PO DAILY [facility] Last Admin: 01/05/17 10:16 Dose: 20 mg Heparin Sodium (Porcine) (Heparin) 5,000 units SC Q12 [facility]NA Last Admin: 01/02/17 10:33 Dose: 5,000 units Lactated Ringer's (Lactated Ringer's) 1,000 mls @ 100 mls/hr IV .Q10H [facility] Last Admin: 01/05/17 05:00 Dose: Not Given Morphine Sulfate (Morphine) 4 mg IVP Q4 PRN PRN Reason: Pain, Mild (1-3) Last Admin: 01/04/17 23:06 Dose: 4 mg Ondansetron HCl (Zofran Inj) 4 mg IVP Q6H PRN PRN Reason: Nausea/Vomiting Last Admin: 01/03/17 21:51 Dose: 4 mg Pneumococcal Polyvalent Vaccine (Pneumovax 23 Vaccine) 0.5 ml IM .ONCE ONE Stop: 01/07/17 10:01 - Labs Labs: 01/06/17 08:02 01/06/17 08:02 PT 11.9 SECONDS (9.7-12.2) 01/02/17 01:25 INR 1.1 01/02/17 01:25 APTT 39 SECONDS (21-34) H 01/02/17 01:25 Attending/Attestation - Attestation I have personally seen and examined this patient.: Yes I have fully participated in the care of the patient.: Yes I have reviewed all pertinent clinical information, including history, physical exam and plan: Yes Notes (Text): 01/06/17 09:47 Pt with cholelithiasis and CBD stone s/p ERCP OR for Lap Cholecystectomy on friday NPO, IVG Plan d.w pt in detail Risk and benefit explained in detail.
[2017-01-06 08:09] LABS: BASO % 0.5 % (0.0-2.0); EOS # 0.1 K/uL (0.0-0.7); EOS % 1.9 % (0.0-4.0); HEMATOCRIT 36.5 % (34.0-47.0); LYMPH # 2.4 K/uL (1.0-4.3); LYMPH % 30.6 % (20.0-40.0); MEAN CELL VOLUME 80.2 fL (81.0-99.0); MEAN CORPUSCULAR HEMOGLOBIN 26.3 pg (27.0-31.0); MEAN CORPUSCULAR HGB CONC 32.8 g/dL (33.0-37.0); MEAN PLATELET VOLUME 7.9 fL (7.2-11.7); MONO # 0.6 K/uL (0.0-0.8)
[2017-01-06 08:23] LABS: CHLORIDE 100 mmol/L (98-107); POTASSIUM 3.9 mmol/L (3.6-5.2); SODIUM 140 mmol/L (132-148)
[2017-01-06 08:26] LABS: ALB/GLOB RATIO 1.2 (1.0-2.1); ALKALINE PHOSPHATASE 64 U/L (38-126); ALT/SGPT 72 U/L (9-52); AST/SGOT 18 U/L (14-36); BILIRUBIN,TOTAL 0.4 mg/dL (0.2-1.3); BLOOD UREA NITROGEN 10 mg/dL (7-17); CARBON DIOXIDE 26 mmol/L (22-30); GFR AFRICAN-AMERICAN > 60; GLUCOSE,RANDOM 87 mg/dL (65-105); TOTAL PROTEIN 7.2 g/dL (6.3-8.3)
[2017-01-06] MEDS: Lactated Ringer's 1,000 ML IV SCH (10:00)
--- NOTE | 2017-01-06 14:04 | RAD ---
PROCEDURE: Intraoperative Fluoroscopy. HISTORY: GALLSTONES FINDINGS: Fluoroscopic assistance was provided for ERCP. Please refer to the
[2017-01-06] MEDS ORDERED: Midazolam 2 MG/2 ML VIAL ONE (16:08)
[2017-01-06] MEDS ORDERED: Propofol 10 mg/ml Inj (20 ML) ONE (16:08)
[2017-01-06] MEDS ORDERED: Lactated Ringer's 1,000 ML IV ONE ×2 (16:55→20:30)
[2017-01-06] MEDS ORDERED: Bupivacaine/Epi 0.25%-1:200,000 10 ml PF inj IJ ONE (17:01)
[2017-01-06] MEDS ORDERED: Lidocaine 2% Inj (20ml) ONE (17:02)
[2017-01-06] MEDS ORDERED: ceFAZolin IV 2 gm in Dextrose 1 GM/50 ML BAG IVPB ONE (17:06)
--- NOTE | 2017-01-06 18:00 | CP.PCM.PN ---
<Yann Miranda - Last Filed: 01/07/17 05:16> Subjective - Date & Time of Evaluation Date of Evaluation: 01/06/17 Time of Evaluation: 08:00 - Subjective Subjective: PGY1 Medicine Note for Dr. Diaz Patient seen and examined at bedside this morning. Patient is scheduled for a Lap Marycruz later this afternoon. She currently has no complaints and states that she is in no pain. Denies f/c, n/v/d, sob, cp, abd pain or headaches. Objective - Vital Signs/Intake and Output Vital Signs (last 24 hours): Temp Pulse Resp BP Pulse Ox 97.8 F 71 20 120/78 99 01/06/17 08:10 01/06/17 08:10 01/06/17 08:10 01/06/17 08:10 01/06/17 08:10 Intake and Output: 01/06/17 01/06/17 06:59 18:59 Intake Total 500 Balance 500 - Medications Medications: Current Medications Acetaminophen (Tylenol 325mg Tab) 650 mg PO Q6 PRN PRN Reason: Fever >100.4 F Last Admin: 01/03/17 23:24 Dose: 650 mg Famotidine (Pepcid) 20 mg PO DAILY [facility] Last Admin: 01/06/17 10:00 Dose: Not Given Heparin Sodium (Porcine) (Heparin) 5,000 units SC Q12 [facility] Last Admin: 01/02/17 10:33 Dose: 5,000 units Morphine Sulfate (Morphine) 4 mg IVP Q4 PRN PRN Reason: Pain, Mild (1-3) Last Admin: 01/04/17 23:06 Dose: 4 mg Ondansetron HCl (Zofran Inj) 4 mg IVP Q6H PRN PRN Reason: Nausea/Vomiting Last Admin: 01/03/17 21:51 Dose: 4 mg Pneumococcal Polyvalent Vaccine (Pneumovax 23 Vaccine) 0.5 ml IM .ONCE ONE Stop: 01/07/17 10:01 - Labs Labs: 01/06/17 08:02 01/06/17 08:02 PT 11.9 SECONDS (9.7-12.2) 01/02/17 01:25 INR 1.1 01/02/17 01:25 APTT 39 SECONDS (21-34) H 01/02/17 01:25 - Constitutional Appears: Non-toxic, No Acute Distress - Head Exam Head Exam: ATRAUMATIC, NORMOCEPHALIC - Eye Exam Eye Exam: EOMI, Normal appearance - ENT Exam ENT Exam: Mucous Membranes Moist - Respiratory Exam Respiratory Exam: Clear to Ausculation Bilateral, NORMAL BREATHING PATTERN. absent: Accessory Muscle Use, Rales, Rhonchi, Wheezes, Respiratory Distress - Cardiovascular Exam Cardiovascular Exam: REGULAR RHYTHM, +S1, +S2 - GI/Abdominal Exam GI & Abdominal Exam: Soft, Normal Bowel Sounds. absent: Distended, Firm, Guarding, Rigid, Tenderness - Extremities Exam Extremities Exam: absent: Calf Tenderness, Pedal Edema - Neurological Exam Neurological Exam: Alert, Awake, Oriented x3 - Psychiatric Exam Psychiatric exam: Normal Affect, Normal Mood - Skin Skin Exam: Dry, Intact, Normal Color, Warm Assessment and Plan - Assessment and Plan (Free Text) Assessment: (1) Cholelithiases Abd U/S: gallstones, CBD mildly dilated at 8mm, mild hepatomegaly GI consulted, Dr Bo GI consulted, Dr. Quinones - ERCP MRCP abdomen w and w/o contrast 01/02- shows 3mm stone in distal CBD. EGD/EUS/ERCP 01/03- s/p sphincterotomy and stone extraction Liquid diet advance as tolerated, per GI zofran 4mg ivp q6h prn for n/v Surgery consult, Dr. Copeland * scheduled for lap marycruz on Friday Pain management per surgery: Morphine 4 mg IV Q4H prn (2) Prophylactic measure DVT: heparin 5000u sc q12 held - - pt placed on SCDs for DVT ppx at this time GI: famotidine 20mg po daily Diet: Liquid Diet Tylenol 650 mg Q6 prn fever Will discuss case with Dr. Emily Lugon PGY1 <Juan Diaz - Last Filed: 01/07/17 07:33> Objective - Vital Signs/Intake and Output Vital Signs (last 24 hours): Temp Pulse Resp BP Pulse Ox 98.4 F 85 20 129/76 98 01/07/17 00:00 01/07/17 00:00 01/07/17 00:00 01/07/17 00:00 01/07/17 00:00 Intake and Output: 01/07/17 01/07/17 06:59 18:59 Intake Total 500 Output Total 45 Balance 455 - Medications Medications: Current Medications Acetaminophen (Tylenol 325mg Tab) 650 mg PO Q6 PRN PRN Reason: Fever >100.4 F Last Admin: 01/03/17 23:24 Dose: 650 mg Famotidine (Pepcid) 20 mg PO DAILY [facility] Last Admin: 01/06/17 10:00 Dose: Not Given Heparin Sodium (Porcine) (Heparin) 5,000 units SC Q12 [facility] Last Admin: 01/02/17 10:33 Dose: 5,000 units Lactated Ringer's (Lactated Ringer's) 1,000 mls @ 100 mls/hr IV .Q10H [facility] Stop: 01/08/17 22:16 Last Admin: 01/07/17 07:15 Dose: 100 mls/hr Morphine Sulfate (Morphine) 4 mg IVP Q4 PRN PRN Reason: Pain, severe (8-10) Last Admin: 01/07/17 01:05 Dose: 4 mg Ondansetron HCl (Zofran Inj) 4 mg IVP Q6H PRN PRN Reason: Nausea/Vomiting Last Admin: 01/03/17 21:51 Dose: 4 mg Oxycodone/Acetaminophen (Percocet 5/325 Mg Tab) 1 tab PO Q4H PRN PRN Reason: Pain, moderate (4-7) Stop: 01/09/17 19:27 Pneumococcal Polyvalent Vaccine (Pneumovax 23 Vaccine) 0.5 ml IM .ONCE ONE Stop: 01/07/17 10:01 - Labs Labs: 01/06/17 08:02 01/06/17 08:02 PT 11.9 SECONDS (9.7-12.2) 01/02/17 01:25 INR 1.1 01/02/17 01:25 APTT 39 SECONDS (21-34) H 01/02/17 01:25 Attending/Attestation - Attestation I have personally seen and examined this patient.: Yes I have fully participated in the care of the patient.: Yes I have reviewed all pertinent clinical information, including history, physical exam and plan: Yes Notes (Text): 01/07/17 07:29 Medical Attending: Patient was seen and examined by me. Agree with the above note by the resident. This is my first time meeting the patient She had an ultrasound which dilated CBD of 8mm. She then underwent an MRCP and then later ERCP for stone extraction. When seen she was not in any acute distress. She was waiting on surgery later in the day to remove gall bladder. thank you Juan Diaz
[2017-01-06] MEDS ORDERED: Neostigmine Methylsulfate 3mg/3ml Syringe IV ONE (18:33)
[2017-01-06] MEDS ORDERED: HYDROmorphone 0.5 mg/0.5 ml ISec IVP PRN (19:24)
[2017-01-06] MEDS ORDERED: Oxycodone/Acetaminophen 5/325 mg Tab PO PRN (19:26)
--- NOTE | 2017-01-06 19:30 | PCM.SURG1 ---
Surgeon's Initial Post Op Note - Surgeon's Notes Surgeon: Dr. Copeland Terrazzo Layer: Dr. 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
[2017-01-06] MEDS ORDERED: Lactated Ringer's 1,000 ML IV SCH (20:15)
[2017-01-07] MEDS: Morphine 4 MG/ML VIAL IVP PRN ×2 (01:05→07:49)
--- NOTE | 2017-01-07 05:48 | OP ---
PROCEDURE DATE: 01/06/2017 PREOPERATIVE DIAGNOSES: 1. Chronic cholecystitis. 2. Cholelithiasis. 3. Choledocholithiasis, status post ERCP. POSTOPERATIVE DIAGNOSES: 1. Chronic cholecystitis with cholelithiasis. 2. Extensive postinfectious adhesion. 3. 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 Operation: 1. Lap Extensive Lysis of adhesion 2. Lap cholecystectomy 3. Duodenal enterolysis with repair for suspected fistulous tract to mid Gall bladder. TYPE OF ANESTHESIA: General endotracheal tube anesthesia. ESTIMATED BLOOD LOSS: Around 50 mL. DRAIN: A 19-Palauan Eligio drain was placed. COMPLICATIONS: None. INTRAOPERATIVE FINDINGS: The patient had chronic cholecystitis and the patient had extensive adhesion in the right upper quadrant and duodenum was firmly adhesed to the mid part of the gallbladder and there was possible fistula suspected in the gallbladder and the duodenum, and the patient had extremely dilated common bile duct and it took approximately 60 to 80 minutes extra for the routine procedure due to extensive dissection. DESCRIPTION OF PROCEDURE: On intraoperative steps, this is a 36-year-old was diagnosed with chronic cholecystitis and choledocholithiasis and the patient is status post ERCP and the patient was consented for the laparoscopic cholecystectomy, possible open; and the patient was brought to the OR, placed supine on operating table. After induction of the anesthesia, abdomen was prepped and draped in the usual sterile fashion. A supraumbilical transverse incision was made. After incising skin and subcutaneous tissue, the fascia was incised and Franki port was placed, another 12 mm port was placed in the midline below costal margin and another two 5-mm ports were placed in the midclavicular and anterior axillary line after the grasper and dissector were introduced and gallbladder had extensive adhesion to the colon and to the liver and to the omentum and first lysis of adhesion was done and gallbladder was retracted cranially. The duodenum was attached to the mid part of the gallbladder and after extensive dissection, it was unable to dissect the duodenum of the gallbladder due to extensive adhesion, so now the suspected fistula between the gallbladder and duodenum was resected with the QUYEN and duodenal part was repaired and now the Calot's triangle appeared to be extremely thickened and edematous, and the patient also had very large dilated common bile duct and the first Calot's triangle dissection was done. 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 The proper hemostasis was achieved. The 19-Palauan Eligio drain was placed and after taking out all the instruments, all the ports were taken down under vision, pneumo was deflated. The umbilical port site was closed in 2 layers, the fascia with a 0 Vicryl interrupted suture, skin with a 4-0 Monocryl and dry sterile dressing was applied. The gallbladder was sent to the table for the pathology. Count of the instruments was correct. There was no apparent complication. The patient was extubated in the OR, sent to the postanesthesia care unit in stable condition. Chuck Copeland MD MTDD
[2017-01-07] MEDS: Lactated Ringer's 1,000 ML IV SCH ×3 (07:15→08:41)
[2017-01-07 08:02] LABS: BASO % 0.1 % (0.0-2.0); EOS % 0.2 % (0.0-4.0); LYMPH # 1.7 K/uL (1.0-4.3); LYMPH % 14.6 % (20.0-40.0); MEAN CORPUSCULAR HEMOGLOBIN 26.7 pg (27.0-31.0); MEAN CORPUSCULAR HGB CONC 33.4 g/dL (33.0-37.0); MEAN PLATELET VOLUME 7.7 fL (7.2-11.7); MONO # 0.6 K/uL (0.0-0.8); MONO % 5.6 % (0.0-10.0); WHITE BLOOD COUNT 11.5 K/uL (4.8-10.8)
[2017-01-07 08:28] LABS: CHLORIDE 95 mmol/L (98-107); SODIUM 135 mmol/L (132-148)
[2017-01-07 08:30] LABS: BILIRUBIN,TOTAL 0.7 mg/dL (0.2-1.3); CARBON DIOXIDE 25 mmol/L (22-30); GFR AFRICAN-AMERICAN > 60
[2017-01-07 08:31] LABS: ALB/GLOB RATIO 1.1 (1.0-2.1); ALKALINE PHOSPHATASE 70 U/L (38-126); ALT/SGPT 88 U/L (9-52); AST/SGOT 39 U/L (14-36); BLOOD UREA NITROGEN 8 mg/dL (7-17); CALCIUM 8.9 mg/dl (8.6-10.4); GLUCOSE,RANDOM 107 mg/dL (65-105); TOTAL PROTEIN 7.4 g/dL (6.3-8.3)
[2017-01-07 08:42] VITALS: BP 136/88; PULSE 67; RESP 19; TEMP 99.1; O2SAT 97
--- NOTE | 2017-01-07 09:05 | CP.PCM.PN ---
<Magdalena Ruiz - Last Filed: 01/07/17 09:28> Subjective - Date & Time of Evaluation Date of Evaluation: 01/07/17 Time of Evaluation: 07:00 - Subjective Subjective: General Surgery Dr. Copeland Pt S&E @bedside. pt had laparscopic cholecystectomy yesterday. Pt tolerated the procedure well w/ no complications. NAEO. pt denies F/C, N/V. tolerating CLD. Eligio drain 70cc serosanguinous output overnight Objective - Vital Signs/Intake and Output Vital Signs (last 24 hours): Temp Pulse Resp BP Pulse Ox 99.1 F 67 19 136/88 97 01/07/17 08:41 01/07/17 08:41 01/07/17 08:41 01/07/17 08:41 01/07/17 08:41 Intake and Output: 01/07/17 01/07/17 06:59 18:59 Intake Total 1900 Output Total 70 Balance 1830 - Medications Medications: Current Medications Acetaminophen (Tylenol 325mg Tab) 650 mg PO Q6 PRN PRN Reason: Fever >100.4 F Last Admin: 01/03/17 23:24 Dose: 650 mg Famotidine (Pepcid) 20 mg PO DAILY [facility] Last Admin: 01/07/17 07:54 Dose: 20 mg Heparin Sodium (Porcine) (Heparin) 5,000 units SC Q12 [facility] Last Admin: 01/02/17 10:33 Dose: 5,000 units Lactated Ringer's (Lactated Ringer's) 1,000 mls @ 100 mls/hr IV .Q10H [facility] Stop: 01/08/17 22:16 Last Admin: 01/07/17 08:41 Dose: Not Given Morphine Sulfate (Morphine) 4 mg IVP Q4 PRN PRN Reason: Pain, severe (8-10) Last Admin: 01/07/17 07:49 Dose: 4 mg Ondansetron HCl (Zofran Inj) 4 mg IVP Q6H PRN PRN Reason: Nausea/Vomiting Last Admin: 01/03/17 21:51 Dose: 4 mg Oxycodone/Acetaminophen (Percocet 5/325 Mg Tab) 1 tab PO Q4H PRN PRN Reason: Pain, moderate (4-7) Stop: 10/05/17 19:27 Pneumococcal Polyvalent Vaccine (Pneumovax 23 Vaccine) 0.5 ml IM .ONCE ONE Stop: 01/07/17 10:01 - Labs Labs: 01/07/17 07:43 01/07/17 07:43 PT 11.9 SECONDS (9.7-12.2) 01/02/17 01:25 INR 1.1 01/02/17 01:25 APTT 39 SECONDS (21-34) H 01/02/17 01:25 - Constitutional Appears: Non-toxic, No Acute Distress - Head Exam Head Exam: NORMAL INSPECTION - Eye Exam Eye Exam: Normal appearance - ENT Exam ENT Exam: Mucous Membranes Moist - Respiratory Exam Respiratory Exam: NORMAL BREATHING PATTERN. absent: Accessory Muscle Use, Respiratory Distress - GI/Abdominal Exam GI & Abdominal Exam: Soft, Tenderness (minimal TTP hernan-incisional). absent: Distended, Guarding, Rigid, Rebound Additional comments: eligio drain RUQ - serosang output dressings c/d/i - Extremities Exam Extremities Exam: Normal Inspection - Neurological Exam Neurological Exam: Alert, Awake, Normal Gait, Oriented x3 - Psychiatric Exam Psychiatric exam: Normal Affect, Normal Mood - Skin Skin Exam: Dry, Normal Color, Warm Assessment and Plan - Assessment and Plan (Free Text) Assessment: 36 y/o F POD#1 s/p laparoscopic cholecystectomy - advance diet as tolerated - cont pain management - encourage OOB to chair/Amb/IS use - pt cleared for discharge from surgical standpoint. - pt is to f/u w/ Dr. Copeland in office on or next Friday. Drain will be removed in office Pt discussed w/ Dr. Dinorah Ruiz DO PGY2 <Chuck Copeland - Last Filed: 01/12/17 17:23> Objective - Vital Signs/Intake and Output Vital Signs (last 24 hours): Temp Pulse Resp BP Pulse Ox 99.1 F 67 19 136/88 97 01/07/17 08:41 01/07/17 08:41 01/07/17 08:41 01/07/17 08:41 01/07/17 08:41 - Labs Labs: 01/07/17 07:43 01/07/17 07:43 PT 11.9 SECONDS (9.7-12.2) 09/28/17 01:25 INR 1.1 01/02/17 01:25 APTT 39 SECONDS (21-34) H 01/02/17 01:25 Attending/Attestation - Attestation I have personally seen and examined this patient.: Yes I have fully participated in the care of the patient.: Yes I have reviewed all pertinent clinical information, including history, physical exam and plan: Yes Notes (Text): 01/12/17 17:22 Pt was seen and examined at bedside Agree with above note and assessment Pt is improving clinically LFT is WNL Pt can be Dc home with Drain Po antibiotics for 7 days Plan d.w pt in detail Risk and benefit explained
[2017-01-07] MEDS ORDERED: Pneumococcal 23-Valent Vaccine IM ONE (10:00)
[2017-01-07] MEDS ORDERED: Influenza Vaccine 60 mcg/0.5 mL SYR (4YR UP) IM ONE (10:00)
--- NOTE | 2017-01-07 11:10 | CP.PCM.DIS ---
<Yann Miranda - Last Filed: 01/07/17 15:49> Provider - Provider Date of Admission: 01/04/17 12:38 Attending physician: Kj Mathew MD Consults: Dr. Copeland Time Spent in preparation of Discharge (in minutes): 30 Hospital Course - Lab Results Lab Results: Micro Results 01/01/17 19:00 Urine Urine Culture - Final No Growth (<1,000 CFU/ML) Most Recent Lab Values WBC 11.5 K/uL (4.8-10.8) H 01/07/17 07:43 RBC 4.50 Mil/uL (3.80-5.20) 01/07/17 07:43 Hgb 12.0 g/dL (11.0-16.0) 01/07/17 07:43 Hct 36.0 % (34.0-47.0) 01/07/17 07:43 MCV 80.0 fL (81.0-99.0) L 01/07/17 07:43 MCH 26.7 pg (27.0-31.0) L 01/07/17 07:43 MCHC 33.4 g/dL (33.0-37.0) 01/07/17 07:43 RDW 13.0 % (11.5-14.5) 01/07/17 07:43 Plt Count 364 K/uL (130-400) 01/07/17 07:43 MPV 7.7 fL (7.2-11.7) 01/07/17 07:43 Neut % (Auto) 79.5 % (50.0-75.0) H 01/07/17 07:43 Lymph % (Auto) 14.6 % (20.0-40.0) L 01/07/17 07:43 [place] % (Auto) 5.6 % (0.0-10.0) 01/07/17 07:43 Eos % (Auto) 0.2 % (0.0-4.0) 01/07/17 07:43 Baso % (Auto) 0.1 % (0.0-2.0) 01/07/17 07:43 Neut # 9.1 K/uL (1.8-7.0) H 01/07/17 07:43 Lymph # 1.7 K/uL (1.0-4.3) 01/07/17 07:43 [place] # 0.6 K/uL (0.0-0.8) 01/07/17 07:43 Eos # 0.0 K/uL (0.0-0.7) 01/07/17 07:43 Baso # 0.0 K/uL (0.0-0.2) 01/07/17 07:43 Neutrophils % (Manual) 88 % (50-75) H 01/04/17 07:03 Band Neutrophils % 4 % (0-2) H 01/04/17 07:03 Lymphocytes % (Manual) 5 % (20-40) L 01/04/17 07:03 Monocytes % (Manual) 3 % (0-10) 01/04/17 07:03 Platelet Estimate Normal (NORMAL) 01/04/17 07:03 RBC Morphology Normal 01/04/17 07:03 PT 11.9 SECONDS (9.7-12.2) 01/02/17 01:25 INR 1.1 01/02/17 01:25 APTT 39 SECONDS (21-34) H 01/02/17 01:25 Sodium 135 mmol/L (132-148) 01/07/17 07:43 Potassium 4.0 mmol/L (3.6-5.2) 01/07/17 07:43 Chloride 95 mmol/L (98-107) L 01/07/17 07:43 Carbon Dioxide 25 mmol/L (22-30) 01/07/17 07:43 Anion Gap 19 (10-20) 01/07/17 07:43 BUN 8 mg/dL (7-17) 01/07/17 07:43 Creatinine 0.7 MG/DL (0.7-1.2) 01/07/17 07:43 Est GFR ( Amer) > 60 01/07/17 07:43 Est GFR (Non-Af Amer) > 60 01/07/17 07:43 Random Glucose 107 mg/dL (65-105) H 01/07/17 07:43 Calcium 8.9 mg/dl (8.6-10.4) 01/07/17 07:43 Total Bilirubin 0.7 mg/dL (0.2-1.3) 01/07/17 07:43 AST 39 U/L (14-36) H D 01/07/17 07:43 ALT 88 U/L (9-52) H D 01/07/17 07:43 Alkaline Phosphatase 70 U/L (38-126) 01/07/17 07:43 Total Protein 7.4 g/dL (6.3-8.3) 01/07/17 07:43 Albumin 3.9 g/dL (3.5-5.0) 01/07/17 07:43 Globulin 3.5 gm/dL (2.2-3.9) 01/07/17 07:43 Albumin/Globulin Ratio 1.1 (1.0-2.1) 01/07/17 07:43 Lipase 92 U/L (23-300) 01/01/17 19:27 Urine Color Yellow (YELLOW) 01/01/17 19:27 Urine Clarity Clear (Clear) 01/01/17 19:27 Urine pH 5.0 (5.0-8.0) 01/01/17 19:27 Ur Specific [place] 1.028 (1.003-1.030) 01/01/17 19:27 Urine Protein Negative mg/dL (NEGATIVE) 01/01/17 19:27 Urine Glucose (UA) Normal mg/dL (Normal) 01/01/17 19:27 Urine Ketones Negative mg/dL (NEGATIVE) 01/01/17 19:27 Urine Blood Negative (NEGATIVE) 01/01/17 19:27 Urine Nitrate Negative (NEGATIVE) 01/01/17 19:27 Urine Bilirubin Negative (NEGATIVE) 01/01/17 19:27 Urine Urobilinogen Normal mg/dL (0.2-1.0) 01/01/17 19:27 Ur Leukocyte Esterase 1+ Ruel/uL (Negative) H 01/01/17 19:27 Urine WBC (Auto) 42 /hpf (0-5) H 01/01/17 19:27 Urine RBC (Auto) 3 /hpf (0-3) 01/01/17 19:27 Ur Squamous Epith Cells 15 /hpf (0-5) H 01/01/17 19:27 Urine Bacteria Rare (<OCC) 01/01/17 19:27 Urine HCG, Qual Negative (NEGATIVE) 01/06/17 09:10 IgG 1290.3 mg/dL (700.0-1600.0) 01/03/17 07:52 ZOE 6 Profile Negative (NEGATIVE) 01/03/17 07:52 Anti-Mitochondrial Ab Negative (Negative) 01/03/17 07:52 Anti-Smooth Muscle Ab Negative (Negative) 01/03/17 07:52 Hepatitis A IgM Ab Negative (NEGATIVE) 01/03/17 11:52 Hep Bs Antigen Negative (NEGATIVE) 01/03/17 11:52 Hep B Core IgM Ab Negative (NEGATIVE) 01/03/17 11:52 Hepatitis C Antibody Negative (NEGATIVE) 01/03/17 11:52 - Hospital Course Hospital Course: As per admission documentation 01/02/17, 36 yo F with no PMHx presented to the ED with intermittent epigastric abdominal pain that began 2 weeks ago. She says the pain radiates from the epigastrum to different quadrants of the abdomen. She describes the pain as sharp and stabbing and rates it a 10/10. She says zantac relieves her symptoms but only for an hour. No exacerbating factors. Associated symptoms include non-bloody emesis on several occasions, fever, chills, headache, dizziness, nausea, non- bloody diarrhea. She went to work today, had an episode of emesis, along with her abdominal pain and decided to come to the ED. Hospital Course Patient was admitted with dx of Cholelithiases. GI consulted, Dr. Bo and Dr. Quinones. General Surgery consulted, Dr. Copeland. Abd US on 01/01/17 - gallstones, CBD mildly dilated at 8mm, mild hepatomegaly. MRCP on 01/02 showed a stone in the proximal CBD. ERCP w/Sphincterotomy and stone extraction on . Successful Lap Marycruz on 01/06/17. Patient was stable throughout her hospital stay. She is to follow up with Dr. Copeland on either 01/09 or Sunday 01/14 for removal of PAT drain. Discharge instructions 01/07/17, Patient is to be discharged home as per Dr. Diaz. Patient was cleared by general surgery for discharge home per Dr. Copeland. She is to follow up with Dr. Copeland on either 01/09/17 or Friday01/14/17 to have drain removed. Patient is to follow up with her Primary Care Physician within one week of being discharged. If patient does not have a primary care physician, she is to follow up with [facility] the [facility]. If patient notices any new or worsening symptoms, she is to return to the hospital. Discharge Medications Percocet 5/325mg PO Q4H PRN for paindisp #24tabs Colace 100mg PO BID PRN for constipation - Date & Time of H&P Date of H&P: 01/02/17 Time of H&P: 09:10 Discharge Exam - Head Exam Head Exam: NORMAL INSPECTION - Eye Exam Eye Exam: EOMI, Normal appearance - ENT Exam ENT Exam: Mucous Membranes Moist - Neck Exam Neck exam: Full Rom - Respiratory Exam Respiratory Exam: Accessory Muscle Use, Clear to PA & Lateral, NORMAL BREATHING PATTERN, UNREMARKABLE. absent: Rhonchi, Wheezes, Respiratory Distress - Cardiovascular Exam Cardiovascular Exam: REGULAR RHYTHM, +S1, +S2 - GI/Abdominal Exam GI & Abdominal Exam: Soft, Tenderness. absent: Distended, Firm, Guarding, Rebound, Rigid Additional comments: Patient is s/p lap marycruz. Patient has 4 incision sites. Bandages are c/d/i. PAT drain in place, draining serosanguineous fluid. - Extremities Exam Extremities exam: normal capillary refill, normal inspection, pedal pulses present - Neurological Exam Neurological exam: Alert, Oriented x3 - Psychiatric Exam Psychiatric exam: Normal Affect, Normal Mood - Skin Skin Exam: Dry, Normal Color, Warm Discharge Plan - Discharge Medications Prescriptions: Docusate Sodium [Colace] 100 mg PO BID PRN #30 capsule PRN Reason: Constipation oxyCODONE/Acetaminophen [Percocet 5/325 mg Tab] 1 tab PO Q4H PRN #24 tab PRN Reason: Pain, Moderate (4-7) - Follow Up Plan Condition: GOOD Disposition: HOME/ ROUTINE Instructions: Oxycodone/Acetaminophen (By mouth), Laxative, Stool Softeners ( By mouth), Gallstones (DC), Vickey-Hung Drain Care (DC), Laparoscopic Cholecystectomy (DC), Regular Diet (DC) Additional Instructions: Patient is to be discharged home as per Dr. Diaz. Patient was cleared by general surgery for discharge home per Dr. Copeland. She is to follow up with Dr. Copeland on either 01/09/17 or Friday01/14/17 to have drain removed. Patient is to follow up with her Primary Care Physician within one week of being discharged. If patient does not have a primary care physician, she is to follow [facility] with [facility]. If patient notices any new or worsening symptoms, she is to return to the hospital. Discharge Medications Percocet 5/325mg PO Q4H PRN for paindisp #24tabs Colace 100mg PO BID PRN for constipation Referrals: [facility] [Outside] Chuck Copeland MD [Staff Provider] - <Juan Diaz - Last Filed: 01/08/17 08:31> Provider - Provider Date of Admission: 01/04/17 12:38 Attending physician: Kj Mathew MD Hospital Course - Lab Results Lab Results: Micro Results 01/01/17 19:00 Urine Urine Culture - Final No Growth (<1,000 CFU/ML) Most Recent Lab Values WBC 11.5 K/uL (4.8-10.8) H 01/07/17 07:43 RBC 4.50 Mil/uL (3.80-5.20) 01/07/17 07:43 Hgb 12.0 g/dL (11.0-16.0) 01/07/17 07:43 Hct 36.0 % (34.0-47.0) 01/07/17 07:43 MCV 80.0 fL (81.0-99.0) L 01/07/17 07:43 MCH 26.7 pg (27.0-31.0) L 01/07/17 07:43 MCHC 33.4 g/dL (33.0-37.0) 01/07/17 07:43 RDW 13.0 % (11.5-14.5) 01/07/17 07:43 Plt Count 364 K/uL (130-400) 01/07/17 07:43 MPV 7.7 fL (7.2-11.7) 01/07/17 07:43 Neut % (Auto) 79.5 % (50.0-75.0) H 01/07/17 07:43 Lymph % (Auto) 14.6 % (20.0-40.0) L 01/07/17 07:43 [place] % (Auto) 5.6 % (0.0-10.0) 01/07/17 07:43 Eos % (Auto) 0.2 % (0.0-4.0) 01/07/17 07:43 Baso % (Auto) 0.1 % (0.0-2.0) 01/07/17 07:43 Neut # 9.1 K/uL (1.8-7.0) H 01/07/17 07:43 Lymph # 1.7 K/uL (1.0-4.3) 01/07/17 07:43 [place] # 0.6 K/uL (0.0-0.8) 01/07/17 07:43 Eos # 0.0 K/uL (0.0-0.7) 01/07/17 07:43 Baso # 0.0 K/uL (0.0-0.2) 01/07/17 07:43 Neutrophils % (Manual) 88 % (50-75) H 01/04/17 07:03 Band Neutrophils % 4 % (0-2) H 01/04/17 07:03 Lymphocytes % (Manual) 5 % (20-40) L 01/04/17 07:03 Monocytes % (Manual) 3 % (0-10) 01/04/17 07:03 Platelet Estimate Normal (NORMAL) 01/04/17 07:03 RBC Morphology Normal 01/04/17 07:03 PT 11.9 SECONDS (9.7-12.2) 01/02/17 01:25 INR 1.1 01/02/17 01:25 APTT 39 SECONDS (21-34) H 01/02/17 01:25 Sodium 135 mmol/L (132-148) 01/07/17 07:43 Potassium 4.0 mmol/L (3.6-5.2) 01/07/17 07:43 Chloride 95 mmol/L (98-107) L 01/07/17 07:43 Carbon Dioxide 25 mmol/L (22-30) 01/07/17 07:43 Anion Gap 19 (10-20) 01/07/17 07:43 BUN 8 mg/dL (7-17) 01/07/17 07:43 Creatinine 0.7 MG/DL (0.7-1.2) 01/07/17 07:43 Est GFR ( Amer) > 60 01/07/17 07:43 Est GFR (Non-Af Amer) > 60 01/07/17 07:43 Random Glucose 107 mg/dL (65-105) H 01/07/17 07:43 Calcium 8.9 mg/dl (8.6-10.4) 01/07/17 07:43 Total Bilirubin 0.7 mg/dL (0.2-1.3) 01/07/17 07:43 AST 39 U/L (14-36) H D 01/07/17 07:43 ALT 88 U/L (9-52) H D 01/07/17 07:43 Alkaline Phosphatase 70 U/L (38-126) 01/07/17 07:43 Total Protein 7.4 g/dL (6.3-8.3) 01/07/17 07:43 Albumin 3.9 g/dL (3.5-5.0) 01/07/17 07:43 Globulin 3.5 gm/dL (2.2-3.9) 01/07/17 07:43 Albumin/Globulin Ratio 1.1 (1.0-2.1) 01/07/17 07:43 Lipase 92 U/L (23-300) 01/01/17 19:27 Urine Color Yellow (YELLOW) 01/01/17 19:27 Urine Clarity Clear (Clear) 01/01/17 19:27 Urine pH 5.0 (5.0-8.0) 01/01/17 19:27 Ur Specific [place] 1.028 (1.003-1.030) 01/01/17 19:27 Urine Protein Negative mg/dL (NEGATIVE) 01/01/17 19:27 Urine Glucose (UA) Normal mg/dL (Normal) 01/01/17 19:27 Urine Ketones Negative mg/dL (NEGATIVE) 01/01/17 19:27 Urine Blood Negative (NEGATIVE) 01/01/17 19:27 Urine Nitrate Negative (NEGATIVE) 01/01/17 19:27 Urine Bilirubin Negative (NEGATIVE) 01/01/17 19:27 Urine Urobilinogen Normal mg/dL (0.2-1.0) 01/01/17 19:27 Ur Leukocyte Esterase 1+ Ruel/uL (Negative) H 01/01/17 19:27 Urine WBC (Auto) 42 /hpf (0-5) H 01/01/17 19:27 Urine RBC (Auto) 3 /hpf (0-3) 01/01/17 19:27 Ur Squamous Epith Cells 15 /hpf (0-5) H 01/01/17 19:27 Urine Bacteria Rare (<OCC) 01/01/17 19:27 Urine HCG, Qual Negative (NEGATIVE) 01/06/17 09:10 IgG 1290.3 mg/dL (700.0-1600.0) 01/03/17 07:52 ZOE 6 Profile Negative (NEGATIVE) 01/03/17 07:52 Anti-Mitochondrial Ab Negative (Negative) 01/03/17 07:52 Anti-Smooth Muscle Ab Negative (Negative) 01/03/17 07:52 Liver/Kid Microsomes Ab <=20.0 U (<=20.0) 01/03/17 07:52 Hepatitis A IgM Ab Negative (NEGATIVE) 01/03/17 11:52 Hep Bs Antigen Negative (NEGATIVE) 01/03/17 11:52 Hep B Core IgM Ab Negative (NEGATIVE) 01/03/17 11:52 Hepatitis C Antibody Negative (NEGATIVE) 01/03/17 11:52 Attending/Attestation - Attestation I have personally seen and examined this patient.: Yes I have fully participated in the care of the patient.: Yes I have reviewed all pertinent clinical information, including history, physical exam and plan: Yes Notes (Text): Medical Attending: Patient was seen and examined by me. Agree with the above note by the resident. The patient was S/P cholesectomy when we came and saw her. She had a drain present as well. She explained to us when we asked that her pain was controlled. She was already placed on a CLD. Furthermore on exam she was already out of bed on her own. She looked very well and looked comfortable when we came to see her in the room. Patient will need to follow up with surgery for removal of the drain. thank you Juan Diaz
[2017-01-07 18:47] LABS: LKM-1 Ab (IgG) <=20.0 U (<=20.0)
== END 2017-01-07 16:05 | disposition home or self-care (01) | DRG 494 ==
LOC: C.ER 16:44 → C.9E 21:57 → C.3T 01-02 01:00 → OBSVTOIN 01-04 12:38
PROVIDERS: ADMIT Family Medicine; ATTEND Family Medicine
PROC: 0FC98ZZ Extirpation of Matter from Common Bile Duct, Via Natural or Artificial Opening Endoscopic (ICD-10-PCS; 2017-01-03)
PROC: 0F798ZZ Dilation of Common Bile Duct, Via Natural or Artificial Opening Endoscopic (ICD-10-PCS; 2017-01-03)
PROC: 0DN94ZZ Release Duodenum, Percutaneous Endoscopic Approach (ICD-10-PCS; 2017-01-06)
PROC: 0DQ94ZZ Repair Duodenum, Percutaneous Endoscopic Approach (ICD-10-PCS; 2017-01-06)
PROC: 0W9F30Z Drainage of Abdominal Wall with Drainage Device, Percutaneous Approach (ICD-10-PCS; 2017-01-06)
PROC: 0FT44ZZ Resection of Gallbladder, Percutaneous Endoscopic Approach (ICD-10-PCS; principal; 2017-01-06 15:45)
DX: K80.66 Calculus of gallbladder and bile duct with acute and chronic cholecystitis without obstruction (principal); R16.0 Hepatomegaly, not elsewhere classified; K83.8 Other specified diseases of biliary tract; K82.8 Other specified diseases of gallbladder; K66.0 Peritoneal adhesions (postprocedural) (postinfection)

== ENCOUNTER 2018-08-11 14:12 | Emergency (ER) | payer OTHER, BC ==
[2018-08-11 14:21] VITALS: BP 133/94; PULSE 86; RESP 18; TEMP 99.1; O2SAT 100
[2018-08-11] MEDS ORDERED: Naproxen 550 mg Tab PO STA (14:57)
[2018-08-11] MEDS ORDERED: Naproxen 550 mg Tab PO ONE (15:08)
--- NOTE | 2018-08-11 15:10 | C.PDOC ---
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 She notes that she was evaluated at the [facility]. At the time, she was discharged with prescription for Flexeril and she was instructed to be on light-duty. She states that she took the medications and is on light-duty. However, she continues to have pain.Denies having direct trauma, falls, dysuria,hematuria, and bowel/bladder incontinence. Time Seen by Provider: 08/11/18 14:27 Chief Complaint (Nursing): Back Pain History Per: Patient History/Exam Limitations: no limitations Onset/Duration Of Symptoms: Days Current Symptoms Are (Timing): Still Present Severity: Moderate Past Medical History Reviewed: Historical Data, Nursing Documentation, Vital Signs Vital Signs: Last Vital Signs Temp 99.1 F 08/11/18 14:18 Pulse 86 08/11/18 14:18 Resp 18 08/11/18 14:18 BP 133/94 H 08/11/18 14:18 Pulse Ox 100 08/11/18 14:18 Primary Care Provider: Clari Pisano - Medical History PMH: No Chronic Diseases Denies: Chronic Kidney Disease Surgical History: Cholecystectomy - [facility] Procedures DILATION OF COMMON BILE DUCT, ENDO (01/04/17) DRAINAGE OF ABDOMINAL WALL WITH DRAIN DEV, PERC APPROACH (01/04/17) EXTIRPATION OF MATTER FROM COMMON BILE DUCT, ENDO (01/04/17) RELEASE DUODENUM, PERCUTANEOUS ENDOSCOPIC APPROACH (01/04/17) REPAIR DUODENUM, PERCUTANEOUS ENDOSCOPIC APPROACH (01/04/17) RESECTION OF GALLBLADDER, PERCUTANEOUS ENDOSCOPIC APPROACH (01/04/17) Family History: States: No Known Family Hx - Social History Hx Alcohol Use: No Hx Substance Use: No - Immunization History Hx Tetanus Toxoid Vaccination: No Hx Influenza Vaccination: No Hx Pneumococcal Vaccination: No Review Of Systems Except As Marked, All Systems Reviewed And Found Negative. Genitourinary: Negative for: Dysuria, Incontinence, Hematuria Musculoskeletal: Positive for: Back Pain Physical Exam - Physical Exam Appears: Non-toxic, No Acute Distress Skin: Normal Color, Warm, Dry Head: Atraumatic, Normacephalic Eye(s): bilateral: Normal Inspection Gastrointestinal/Abdominal: Normal Exam, Soft, No Tenderness, No Guarding, No R ebound Back: No CVA Tenderness, Paraspinal Tenderness (mild right lower paraspinlal tenderness) Neurological/Psych: Oriented x3, Normal Speech, Normal Motor, Normal Sensation Gait: Other (pt is walking with some limp) ED Course And Treatment O2 Sat by Pulse Oximetry: 100 (RA) Pulse Ox Interpretation: Normal Medical Decision Making Medical Decision Making: Plan: --Naproxen PO --POC Urine Test Updates: On re-evaluation, patient feels better. Patient has been discharged and instructed to follow up with PMD. Disposition Counseled Patient/Family Regarding: Studies Performed, Diagnosis, Need For Followup - Disposition Referrals: Clari Pisano MD [Staff Provider] - Disposition: HOME/ ROUTINE Disposition Time: 15:08 Condition: STABLE Additional Instructions: ABIEL PUENTES, thank you for letting us take care of you today. Your provider was Joan Fermin MD and you were treated for BACK PAIN. The emergency medical care you received today was directed at your acute symptoms. If you were prescribed any medication, please fill it and take as directed. It may take several days for your symptoms to resolve. Return to the Emergency Department if your symptoms worsen, do not improve, or if you have any other problems. Please contact your doctor in 1-2 days. Bring any paperwork you were given at discharge with you along with any medications you are taking to your follow up visit. Our treatment cannot replace ongoing medical care by a primary care provider outside of the emergency department. Thank you for allowing the [facility] team to be part of your care today. Prescriptions: Naproxen [Naprosyn] 500 mg PO BID PRN #30 tablet PRN Reason: Pain, Moderate (4-7) Instructions: Lumbar Muscle Strain (DC) Forms: General Discharge Instructions, [facility] (Greenlandic), Work Excuse - POA Present On Arrival: None - Clinical Impression Clinical Impression: Low back strain - Scribe Statement The provider has reviewed the documentation as recorded by the [place] Provider Attestation: All medical record entries made by the Scribe were at my direction and personally dictated by me. I have reviewed the chart and agree that the record accurately reflects my personal performance of the history, physical exam, medical decision making, and the department course for this patient. I have also personally directed, reviewed, and agree with the discharge instructions and disposition.
== END 2018-08-11 15:17 | disposition home or self-care (01) ==
LOC: C.ER 14:12
DX: S39.012A Strain of muscle, fascia and tendon of lower back, initial encounter (principal); X58.XXXA Exposure to other specified factors, initial encounter